=== PATIENT | female | born 1940 | race Caucasian/White ===

== ENCOUNTER 2023-04-04 10:42 | Outpatient (OUT) | payer MEDICARE, SELFPAY ==
--- NOTE | 2023-04-04 | XR_ITS ---
The [address] [address] Patient Name: OMER TATUM MRN: [id number] date: 1940 Sex: F Assigned Patient Location: LAB Current Patient Location: LAB Accession/Order Number: [id number] Exam Date: 04/04/2023 11:15 Report Date: 04/04/2023 11:37 At the request of: ELMO CHOI Procedure: XR chest 2V PROCEDURE: XR chest 2V DATE: 04/04/2023 10:15 AM CDT COMPARISONS: 03/03/2020 CLINICAL INDICATION: 83 years Female R05.3 FINDINGS: The cardiomediastinal silhouette and pulmonary vasculature are within normal limits. There is evidence of moderate chronic lung changes Lateral view suggest that there is the development of pleural effusion. This is difficult to well identified frontal view but it is probably left-sided. There may be minimal right pleural effusion as well. There is no evidence of pneumothorax. XR/XR chest 2V IMPRESSION: Evidence of moderate chronic lung changes, stable. It appears a small left pleural effusion has developed in the interval. Electronically authenticated by: GARY HOBBS Date: 04/04/2023 11:37
[2023-04-04 12:23] LABS: Bilirubin Urine NEGATIVE (NEGATIVE); Blood Urine MODERATE (NEGATIVE); Clarity Urine CLEAR (CLEAR); Color Urine LT. YELLOW (YELLOW); Glucose Urine UA NEGATIVE (NEGATIVE); Ketones Urine NEGATIVE (NEGATIVE); Leukocyte Esterase Urine MODERATE (NEGATIVE); Nitrite Urine POSITIVE (NEGATIVE); Protein Urine 30 mg/dL (NEG/TRACE); Specific Gravity Urine 1.025 (1.005-1.025); Urobilinogen Urine 0.2 EU/dL (0.2-1.0); pH Urine 5.5 (5.0-9.0)
[2023-04-04 12:49] LABS: Basophils Absolute Auto 0.1 10^3/uL (0.0-0.1); Basophils Percent Auto 0.9 % (0.2-2.0); Eosinophils Absolute Auto 0.1 10^3/uL (0.0-0.7); Eosinophils Percent Auto 0.7 % (0.9-7.0); Hemoglobin 12.9 g/dL (12.0-16.0); Immature Granulocytes Abs Auto 0.04 10^3/uL (0.00-0.03); Immature Granulocytes Pct Auto 0.4 % (0.0-0.5); Lymphocytes Absolute Auto 1.9 10^3/uL (1.2-3.8); Lymphocytes Percent Auto 21.5 % (20.5-60.0); Mean Corpuscular HGB Conc 31.5 g/dL (29.9-35.2); Mean Corpuscular Hemoglobin 30.1 pg (26.7-34.0); Mean Corpuscular Volume 95.6 fL (81.0-99.0); Mean Platelet Volume 9.5 fL (9.5-13.5); Monocytes Absolute Auto 0.6 10^3/uL (0.3-0.8); Monocytes Percent Auto 6.2 % (1.7-12.0); Neutrophils Absolute Auto 6.3 10^3/uL (1.4-6.5); Neutrophils Percent Auto 70.3 % (43.0-75.0); Platelet Count 474 10^3/uL (150-450); Red Blood Count 4.29 10^6/uL (4.20-5.40); Red Cell Distribution Width 13.8 % (11.0-15.0)
[2023-04-04 13:15] LABS: Albumin Level 3.3 g/dL (3.4-5.0); Anion Gap 16.6; BUN Creatinine Ratio 22.9; Calcium 9.8 mg/dL (8.5-10.1); Carbon Dioxide 24.3 mmol/L (21.0-32.0); Chloride 102 mmol/L (98-107); Estimated GFR (African America >60 (>=60); Estimated GFR (Non-African Ame 56 (>=60); Glucose 104 mg/dL (74-106); Potassium 3.9 mmol/L (3.5-5.1); Sodium 139 mmol/L (136-145)
[2023-04-04 13:39] LABS: Alanine Aminotransferase 26 U/L (14-59); Albumin Globulin Ratio 0.7; Alkaline Phosphatase 236 U/L (46-116); Aspartate Amino Transferase 27 U/L (15-37); Bilirubin Total 0.2 mg/dL (0.2-1.0); Globulin 4.8 g/dL; Thyroid Stimulating Hormone 0.973 uIU/mL (0.358-3.740); Total Protein 8.1 g/dL (6.4-8.2)
[2023-04-04 15:40] LABS: Free T4 1.09 ng/dL (0.76-1.46)
== END 2023-04-04 10:43 | disposition home or self-care (01) ==
LOC: LAB 10:47
PROVIDERS: PCP Family Medicine; Visit Provider Family Medicine
DX: R05.3 Chronic cough (principal); R63.4 Abnormal weight loss; R53.83 Other fatigue; J90 Pleural effusion, not elsewhere classified
CPT/HCPCS: 36415; 71046; 80053; 81003; 84439; 84443; 85025; 87086; 87150; 87186

== ENCOUNTER 2024-03-06 11:28 | Outpatient (OUT) | payer MEDICARE, SELFPAY ==
--- NOTE | 2024-03-06 | XR_ITS ---
The [address] [address] Patient Name: OMER TATUM MRN: [id number] date: 1940 Sex: F Assigned Patient Location: Current Patient Location: Accession/Order Number: [id number] Exam Date: 03/06/2024 11:30 Report Date: 03/07/2024 06:59 At the request of: GALILEA ADAMS Procedure: XR foot RT min 3V PROCEDURE: XR foot RT min 3V HISTORY: RIGHT FOOT PAIN ; painful lump medial right foot. COMPARISON: None. FINDINGS: BONES:Mild degenerative changes the first metatarsophalangeal joint. Calcaneal plantar spur. No fracture, dislocation, bone lesion. SOFT TISSUES:No visible soft tissue swelling. EFFUSION:None visible. OTHER: Negative. XR/XR foot RT min 3V IMPRESSION: 1. Mild degenerative changes. 2. No acute abnormality or specific findings to account for patient's symptoms. Electronically authenticated by: LI PABON Date: 03/07/2024 06:59
== END 2024-03-06 11:29 | disposition home or self-care (01) ==
LOC: EC 11:28
PROVIDERS: PCP Family Medicine; Visit Provider Podiatrist Foot & Ankle Surgery
DX: M79.671 Pain in right foot (principal); M77.31 Calcaneal spur, right foot
CPT/HCPCS: 73630

== ENCOUNTER 2024-09-12 10:48 | Outpatient (OUT) | payer MEDICARE, SELFPAY ==
--- OUTSIDE RECORDS SUMMARY | 2024-09-12 10:56 | XMS_ITS | CCD ---
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 Name Role Phone René Arias Unavailable Unavailable René Arias Unavailable Unavailable René Arias Unavailable Unavailable Igor SANDERSON Unavailable Unavailable PHYSICIAN, DEFAULT Admitting Unavailable PHYSICIAN, DEFAULT Attending Unavailable JIMBO, DR LEYLA Bustillos Primary Care Unavailable FAWWAChris, EDWARDS H Admitting Unavailable FAWWAD EDWARDS H Consulting Unavailable FANISHANT JULIANIKH H Attending Unavailable JIMBO, DR LEYLA Bustillos Primary Care Unavailable FAWWAChris, EDWARDS H Admitting Unavailable FANISHANT JULIANIKH H Attending Unavailable FROY, DR RIGOBERTO Connolly Consulting Unavailable FAIESHA, EDWARDS H Consulting Unavailable DR LI PABON Consulting Unavailable JIMBO, DR LEYLA Bustillos Attending Unavailable JIMBO, DR LEYLA Bustillos Admitting Unavailable JIMBO, DR LEYLA Bustillos Primary Care Unavailable JIMBO, DR LEYLA Bustillos Consulting Unavailable Shanti Garsia Unavailable Leyla Choi Unavailable Unavailable Unavailable Dr. Carolina Quezada Referring Unavailable Dr. Carolina Quezada Attending Unavailable Dr. Leyla Choi Primary Care Una ailDr. Leyla Barbour Primary Care Una ailDr. Carolina Dumont Referring Unavailable Dr. Carolina Quezada Attending Unavailable Leyla Choi Unavailable Finesse Tomlinson Unavailable Leyla Choi Primary Care Unavailable Harrison Pastor Jr Attending Unavailable Harrison Pastor Jr Admitting Unavailable Allergies Allergy Classification Reported Allergen(s) Allergy Type Date of Onset Reaction(s) Facility (20 sources) codeine; Translations: [codeine] Drug Allergy 0 Rash, Unknown [facility] Repository (7 sources) ibuprofen; Translations: [Advil] Drug Allergy 5 AOF [facility] Repository (2 sources) lisinopril; Translations: [Prinivil] Drug Allergy 4 [facility] Repository (12 sources) Adhesive agent Drug allergy (disorder) 0 Unknown [facility] Repository (1 source) Misc-Other; Translations: [Misc-Other] Propensity to adverse reactions (disorder) 3 [facility] Repository (12 sources) Ibuprofen Drug Allergy 4 Unknown, Swelling of Lip/Tongue/Thr oat [facility] (12 sources) Lisinopril Drug Allergy 4 Unknown, Nausea [facility] (6 sources) Adhesive Tape Drug allergy Unknown [facility] Other (1 source) Allergies Reconciled Propensity to adverse reactions Unknown [facility] Other (1 source) patient allergy list reviewed by nurse or physicia Propensity to adverse reactions 9 Comment:Done [facility] Other (2 sources) Adhesive Tape Drug allergy (disorder) 4 rash [facility] Repository (1 source) Ibuprofen Drug Allergy 4 [facility] Repository (1 source) Lisinopril Drug Allergy 4 [facility] Repository Medications Current Medications Medication Drug Class(es) Dates Sig (Normalized) Sig (Original) aspirin 81 mg chewable tablet (1 source) Platelet Aggregation Inhibitor, Nonsteroidal Anti-inflammatory Drug Start: 12-06-2018 take 81 mg by mouth once daily Aspirin Active 81 MG PO Daily December 06, 2018 12:00am atorvastatin 40 mg oral tablet (18 sources) HMG-CoA Reductase Inhibitor Start: 10-23-2023 take 1 tablet by mouth once daily Atorvastatin Active 0 .ROUTE .COMPLEX 90 October 23, 2023 1:00pm TAKE 1 TABLET BY MOUTH EVERY DAY FOR 30 DAYS Start: 12-06-2018 End: 10-23-2023 take 1 tablet by mouth once daily Atorvastatin Calcium 40 MG Oral Tablet TAKE 1 TABLET BY MOUTH EVERY DAY Quantity: 90 Refills: 0 Ordered: 02-Apr-2021 DO Start : 02-Apr-2021 Active carvedilol 6.25 mg oral tablet (1 source) alpha-Adrenergic Amish, beta-Adrenergic Amish Start: 12-06-2018 take 6.25 mg by mouth twice daily Carvedilol Active 6.25 MG PO Twice daily December 06, 2018 12:00am ciprofloxacin 250 mg oral tablet (3 sources) Quinolone Antimicrobial Start: 04-06-2023 take 1 tablet by mouth every twelve hours Ciprofloxacin HCl 250 MG 1 tablet Orally every 12 hrs for 5 day(s) Apr, Active donepezil hydrochloride 10 mg oral tablet (14 sources) Start: 09-25-2023 End: 12-25-2023 take 1 tablet by mouth once daily at bedtime Donepezil Active 0 .ROUTE .COMPLEX 90 December 25, 2023 12:52pm TAKE 1 TABLET BY MOUTH EVERY DAY AT BEDTIME Start: 09-07-2023 End: 09-25-2023 take 10 mg by mouth once daily Donepezil Discontinued 10 MG PO Daily September 07, 2023 1:00am September 25, 2023 11:33am Start: 10-24-2022 take 1 tablet by amanda th every twenty-four hours Aricept 10 MG 1 tablet at bedtime Orally Once a day for 30 days Oct, Active Donepezil HCl 5 MG TAKE 1 TABLET BY MOUTH EVERY DAY AT BEDTIME FOR 30 DAYS for 30 Active FLUoxetine 20 mg oral capsule (1 source) Serotonin Reuptake Inhibitor Start: 12-06-2018 take 20 mg by mouth once daily Fluoxetine Active 20 MG PO Daily December 06, 2018 12:00am Fluticasone Propion-Salmeterol (1 source) Corticosteroid, beta2-Adrenergic Agonist Start: 12-06-2018 take 1 puff(s) by inhalation every twelve hours Fluticasone Propion-Salmetero l (Advair Hfa) 230-21 mcg/actuation Hfa Aerosol Inhaler Active 2 PUFF INHALATION Q12H December 06, 2018 12:00am Handicap placards as directed (11 sources) Handicap placard s as directed as directed as directed as directed Active losartan potassium 25 mg oral tablet (1 source) Angiotensin 2 Receptor Amish Start: 12-06-2018 take 25 mg by mouth once daily Losartan Active 25 MG PO Daily December 06, 2018 12:00am mirtazapine 15 mg oral tablet (11 sources) Start: 08-28-2023 End: 11-28-2023 take 1 tablet by mouth once daily at bedtime Mirtazapine Active 0 .ROUTE .COMPLEX 90 November 28, 2023 2:06pm TAKE 1 TABLET BY MOUTH EVERYDAY AT BEDTIME Start: 08-28-2023 End: 08-28-2023 take 1 tablet by mouth once daily at bedtime Mirtazapine Discontinued 15 MG PO Daily at bedtime August 28, 2023 1:00am August 28, 2023 3:24pm FreeTextSig: TAKE 1 TABLET BY MOUTH EVERYDAY AT BEDTIME; Note: Source Status: Start; Refills: 0; Qty: 90 Tablet; Provider: Jimbo Mayer ( ) Start: 10-24-2022 take 1 tablet by amanda th every twenty-four hours Remeron 15 MG 1 tablet at bedtime Orally Once a day for 30 days Oct, Active mupirocin 0.02 mg/mg topical ointment (3 sources) RNA Synthetase Inhibitor Antibacterial Start: 10-24-2022 Mupirocin 2 % 1 application Externally Twice a day for 5 days Oct, Active 24 hr nitroglycerin 0.2 mg/hr transdermal system (7 sources) Nitrate Vasodilator Start: 12-06-2018 Nitroglyce rin Active 0.4 MG SUBLINGUAL every 5 to 15 minutes December 06, 2018 12:00am Start: 12-06-2018 apply 1 dose transde rmal route once daily Nitroglycerin Active 1 PATCH TRANSDERML Daily December 06, 2018 12:00am sacubitril 24 mg / valsartan 26 mg oral tablet (18 sources) Angiotensin 2 Receptor Amish Start: 02-07-2024 take 1 tablet by mouth twice daily Sacubitril-Valsartan (Entresto) 24-26 mg tablet Active 0 .ROUTE .COMPLEX 180 February 07, 2024 9:56pm TAKE 1 TABLET BY MOUTH TWICE A DAY FOR 30 DAYS Start: 02-07-2024 End: 02-07-2024 take 1 tablet by mouth twice daily Sacubitril-Valsartan (Entresto) 24-26 mg tablet Discontinued 1 TAB PO Twice daily February 07, 2024 12:00am February 07, 2024 9:56pm Start: 04-21-2021 take 1 tablet by amanda th twice daily Entresto 24-26 MG Oral Tablet TAKE 1 TABLET TWICE A DAY BY ORAL ROUTE FOR 90 DAYS. Quantity: 180 Refills: 0 Ordered: 22-Oct-2021 DO Start : 21-Apr-2021 Active ENTRESTO 24 mg/2 6 mg 1 orally twice a day for 30 days Active ENTRESTO 24 mg/2 6 mg 1 orally twice a day Active ENTRESTO 24 mg/2 6 mg 1 orally twice a day Not-Taking Spiriva HandiHaler (5 sources) Spiriva HandiHal er Active Suprep Bowel Prep . (1 source) Start: 2 Tiotropium [place] (Spiriva With Handihaler) 18 mcg Capsule, W/Inhalation Device (1 source) Start: 7 take 1 capsule by inhalation once daily Tiotropium [place] (Spiriva With Handihaler) 18 mcg Capsule, W/Inhalation Device Active 1 CAP INHALATION Daily June 12, 2017 1:00am traMADol hydrochloride 50 mg oral tablet (20 sources) Opioid Agonist Start: take 50 mg by mouth every eight hours Tramadol Active 50 MG PO Every 8 hours 90 December 06, 2023 8:25am Start: 08-25-2023 End: 12-06-2023 take 50 mg by mouth every six hours Tramadol Discontinued 50 MG PO Every 6 hours 120 August 28, 2023 10:22am December 06, 2023 8:26am Start: 05-02-2023 take 1 tablet by amanda th every six hours as needed traMADol HCl 50 MG TAKE 1 TABLET BY MOUTH EVERY 6 HOURS NEEDED for 30 days Apr, Active Start: 02-14-2023 take 1 tablet by amanda th every six hours as needed traMADol HCl 50 MG TAKE 1 TABLET BY MOUTH EVERY 6 HOURS NEEDED for 30 days Jan, Active Start: 11-03-2022 take 1 tablet by amanda th every six hours as needed traMADol HCl 50 MG TAKE 1 TABLET BY MOUTH EVERY 6 HOURS NEEDED for 30 October, Active Start: 09-23-2022 take 1 tablet by amanda th every six hours as needed traMADol HCl 50 MG TAKE 1 TABLET BY MOUTH EVERY 6 HOURS NEEDED for 30 Aug, Active Start: 07-25-2022 take 1 tablet by amanda th every six hours as needed traMADol HCl 50 MG 1 tablet as needed Orally q6h prn for 30 days 1st rx had wrong amount. Jul, Active Start: 02-23-2022 take 1 tablet by amanda th every six hours as needed for pain traMADol HCl - 50 MG Oral Tablet TAKE 1 TABLET BY MOUTH EVERY 6 HOURS NEEDED FOR PAIN Quantity: 120 Refills: 0 Ordered: 23-Feb-2022 DO Start : 23-Feb-2022 Active Start: 06-12-2017 End: 12-06-2018 take 1 tablet by mouth four times daily Tramadol (Ultram) 50 mg Tablet Discontinued 50 MG PO Four times daily June 12, 2017 1:00am December 06, 2018 3:51pm Completed/Discontinued Medications Medication Drug Class(es) Dates Sig (Normalized) Sig (Original) Acetaminophen / Aspirin / Caffeine (6 sources) Platelet Aggregation Inhibitor, Nonsteroidal Anti-inflammatory Drug, Central Nervous System Stimulant, Methylxanthine Excedrin TABS TAKE 1 TABLET 3 TIMES DAILY NEEDED. Quantity: 0 Refills: 0 Ordered: 10-Mar-2022 DO Active take 2 tablets by mouth every si x hours Excedrin Extra Strength 250-250-65 MG 2 tablets as needed Orally every 6 hrs Active [id number] 200 actuat albuterol 0.09 mg/actuat metered dose inhaler (12 sources) beta2-Adrenergic Agonist Start: 10-22-2021 take 2 puff(s) by mouth every four hours as needed Albuterol Sulfate HFA 108 (90 Base) MCG/ACT Inhalation Aerosol Solution INHALE 2 PUFFS BY MOUTH EVERY 4 HOURS NEEDED Quantity: 8 Refills: 0 Ordered: 22-Oct-2021 DO Start : 22-Oct-2021 Active Start: 12-06-2018 take 1 puff(s) by in halation every four to six hours Albuterol Sulfate Active 2 PUFF INHALATION EVERY 4-6 HOURS December 06, 2018 12:00am take 1 puff(s) by in halation every four hours as needed Ventolin HFA 108 (90 Base) MCG/ACT 1 puff as needed Inhalation every 4 hrs Active ezetimibe 10 mg oral tablet (2 sources) Dietary Cholesterol Absorption Inhibitor Start: 06-12-2017 End: 12-06-2018 take 1 tablet by mouth once daily Ezetimibe (Zetia) 10 mg Tablet Discontinued 10 MG PO Daily June 12, 2017 1:00am December 06, 2018 1:51pm hydroCHLOROthiazide 25 mg oral tablet (5 sources) Thiazide Diuretic Start: 04-21-2021 take 1 tablet by mouth once daily hydroCHLOROthiazide 25 MG Oral Tablet TAKE 1 TABLET BY MOUTH EVERY DAY Quantity: 90 Refills: 0 Ordered: 02-Jul-2021 DO Start : 21-Apr-2021 Active hyoscyamine sulfate 0.125 mg oral tablet (5 sources) take 1 tablet by mouth once daily Hyoscyamine Sulfate 0.125 MG Oral Tablet Take 1 tablet daily Quantity: 0 Refills: 0 Ordered: 10-Mar-2022 DO Active 24 hr metoprolol succinate 100 mg extended release oral tablet (7 sources) beta-Adrenergic Amish Start: 04-21-2021 take 0.5 tablet by mouth once daily Metoprolol Succinate ER 100 MG Oral Tablet Extended Release 24 Hour TAKE 0.5 TABLETS BY MOUTH EVERY DAY FOR 90 DAYS. Quantity: 45 Refills: 0 Ordered: 03-Jan-2022 DO Start : 21-Apr-2021 Active Start: 06-12-2017 End: 12-06-2018 take 100 mg by mouth once daily Metoprolol Succinate Discontinued 100 MG PO Daily June 12, 2017 1:00am December 06, 2018 1:52pm omeprazole 20 mg delayed release oral capsule (6 sources) Proton Pump Inhibitor Start: 01-17-2022 Omeprazo le 20 MG Oral Capsule Delayed Release Quantity: 90 Refills: 0 Ordered: 17-Jan-2022 DO Start : 17-Jan-2022 Active Start: 12-06-2018 take 20 mg by mouth once daily Omeprazole Active 20 MG PO Daily December 06, 2018 12:00am tiotropium 0.018 mg inhalati on powder (6 sources) Anticholinergic Spiriva HandiHal er 18 MCG Inhalation Capsule USE DIRECTED. Quantity: 0 Refills: 0 Ordered: 10-Mar-2022 DO Active Spiriva HandiHal er 18 MCG Inhalation Active Problems Active Problems Problem Classification Problem Date Documented Da te Episodic/Chronic Abdominal pain (12 sources) Abdominal colic; Translations: [Generalized abdominal pain] Episodic Adjustment disorders (12 sources) Reactive depression (situational); Translations: [Adjustment disorder with depressed mood] Onset: 9 Chronic Anxiety disorders (12 sources) Anxiety; Translations: [Other specified anxiety disorders] Onset: 9 Chronic Aortic; peripheral; and visceral artery aneurysms (20 sources) Abdominal aortic aneurysm, without rupture; Translations: [Abdominal aortic aneurysm without rupture] Onset: 8 Resolved: 2 Chronic Chronic obstructive pulmonary disease and bronchiectasis (20 sources) Chronic obstructive lung disease; Translations: [Chronic airway obstruction, not elsewhere classified] Onset: 9 Chronic Conduction disorders (5 sources) Left bundle branch block; Translations: [Other left bundle branch block] Chronic Congestive heart failure; nonhypertensive (17 sources) Unspecified systolic (congestive) heart failure; Translations: [Systolic heart failure] Onset: 1 Chronic Coronary atherosclerosis and other heart disease (16 sources) Coronary atherosclerosis; Translations: [Coronary atherosclerosis of apache coronary artery] Onset: 9 Chronic Delirium, dementia, and amnestic and other cognitive disorders (14 sources) Alzheimer's disease; Translations: [Alzheimer's disease, unspecified] Chronic Disorders of lipid metabolism (20 sources) Hyperlipidemia, unspecified; Translations: [Mixed hyperlipidemia] Onset: 1 Chronic E Codes: Fall (1 source) Fall in home; Translations: [Unspecified fall, initial encounter] 09-15-2023 Episodic Esophageal disorders (17 sources) Gastroesophageal reflux disease; Translations: [Esophageal reflux] Chronic Essential hypertension (18 sources) Essential (primary) hypertension; Translations: [Benign essential hypertension] Onset: 2 Chronic Gastrointestinal hemorrhage (12 sources) Hemorrhage of rectum and anus; Translations: [Rectal bleed] Episodic Genitourinary symptoms and ill-defined conditions (11 sources) Dysuria; Translations: [Dysuria] Episodic Malaise and fatigue (12 sources) Asthenia; Translations: [Weakness] Episodic Nonspecific chest pain (2 sources) Chest pain; Translations: [Chest pain, unspecified] Onset: 9 Episodic Occlusion or stenosis of precerebral arteries (2 sources) Left carotid artery stenosis; Translations: [Occlusion and stenosis of carotid artery without mention of cerebral infarction] Chronic Open wounds of head; neck; and trunk (1 source) Laceration of forehead; Translations: [Laceration without foreign body of other part of head, initial encounter] 09-15-2023 Episodic Other aftercare (11 sources) Long-term current use of inhaled steroid; 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] Episodic Other circulatory disease (5 sources) Carotid bruit; Translations: [Other symptoms involving cardiovascular system] Episodic Other circulatory disease (12 sources) Low blood pressure; Translations: [Hypotension, unspecified] Episodic Other connective tissue disease (11 sources) Pain of right calf; Translations: [Pain in right lower leg] Episodic Other connective tissue disease (1 source) Pain in limb; Translations: [Pain in right lower leg] Episodic Other connective tissue disease (1 source) Foot pain; Translations: [Pain in right foot] 02-27-2024 Episodic Other connective tissue disease (1 source) Pain in right foot; Translations: [Pain in limb] 02-27-2024 Episodic Other gastrointestinal disorders (11 sources) Functional diarrhea; Translations: [Functional diarrhea] Episodic Other injuries and conditions due to external causes (1 source) History of fall; Translations: [History of falling] Episodic Other injuries and conditions due to external causes (1 source) Minor head injury; Translations: [Unspecified injury of head, initial encounter] 09-15-2023 Episodic Other lower respiratory disease (11 sources) Dyspnea on exertion; Translations: [Other forms of dyspnea] Episodic Other lower respiratory disease (11 sources) Multiple nodules of lung; Translations: [Other nonspecific abnormal finding of lung field] Episodic Other lower respiratory disease (1 source) Lung field abnormal; Translations: [Other nonspecific abnormal finding of lung field] Episodic Other nutritional; endocrine; and metabolic disorders (5 sources) Body mass index less than 20; Translations: [Body Mass Index less than 19, adult] Episodic Other nutritional; endocrine; and metabolic disorders (12 sources) Underweight; Translations: [Underweight] Episodic Other nutritional; endocrine; and metabolic disorders (2 sources) Abnormal weight loss Episodic Other screening for suspected conditions (not mental disorders or infectious disease) (2 sources) Encounter for screening for malignant neoplasm of respiratory organs; Translations: [Screening for malignant neoplasm of respiratory tract] Onset: 1 Episodic Other skin disorders (12 sources) Inflamed seborrheic keratosis; Translations: [Inflamed seborrheic keratosis] Onset: 8 Episodic Peripheral and visceral atherosclerosis (20 sources) Peripheral vascular disease, unspecified; Translations: [Atherosclerosis of artery of lower limb] Onset: 2 Resolved: 2 Chronic Pneumonia (except that caused by tuberculosis or sexually transmitted disease) (12 sources) Right lower zone pneumonia; Translations: [Pneumonia, unspecified organism] Onset: 9 Episodic Residual codes; unclassified (5 sources) Localized edema; Translations: [Localized edema] Onset: 2 Episodic Residual codes; unclassified (5 sources) Poor short-term memory ; Translations: [Memory loss] Episodic Residual codes; unclassified (12 sources) Insomnia; Translations: [Insomnia, unspecified] Onset: 9 Episodic Residual codes; unclassified (11 sources) Edema; Translations: [Localized edema] Episodic Residual codes; unclassified (11 sources) Memory impairment; Translations: [Other amnesia] Episodic Residual codes; unclassified (13 sources) Tobacco user; Translations: [Tobacco use] Onset: 8 Episodic Residual codes; unclassified (1 source) Amnesia; Translations: [Other amnesia] Episodic Spondylosis; intervertebral disc disorders; other back problems (16 sources) Chronic back pain ; Translations: [Dorsalgia, unspecified] Onset: 8 Episodic Substance-related disorders (6 sources) Smoker; Translations: [Tobacco use disorder] Chronic Comment on above: 1 pack daily; Superficial injury; contusion (1 source) Abrasion of other part of head, initial encounter Episodic Unclassified (1 source) Unspecified injury of head, initial encounter; Translations: [Unspecified injury of head, initial encounter] Onset: 4 Urinary tract infections (12 sources) Acute urinary tract infection; Translations: [Urinary tract infection, site not specified] Onset: 9 Episodic Past or Other Problems Problem Classification Problem Date Documented Da te Episodic/Chronic Immunizations and screening for infectious disease (1 source) Vaccination given; Translations: [Encounter for immunization] Onset: 05-02-2018 Episodic Other lower respiratory disease (6 sources) Dyspnea; Translations: [Shortness of breath] Onset: 10-22-2018 Episodic Unclassified (11 sources) Abdominal aortic aneurysm (AAA) 3.0 cm to 5.0 cm in diameter in female; Translations: [Abdominal aortic aneurysm (AAA) 3.0 cm to 5.0 cm in diameter in female] Unclassified (1 source) 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 classified elsewhere, moderate, without behavioral disturbance, psychotic disturbance, mood disturbance, and anxiety F02.B0 Unclassified (1 source) Chronic cough R05.3 Results Test Name Value Interpretation Reference Range Facility CT head/brain wo conon 09-07 CT head/brain wo con [facility] Main [place] [address] [place] [address] CT Scan Report Signed Patient: Jody Tatum MR#: [id number] : 1940 Acct:[id number] Age/Sex: 83 / F ADM Date: 09/07/23 Loc: ER Room: Type: [facility] ER Attending Dr: Copies to: Harrison Pastor Jr, MD Ordering Provider: Harrison Pastor Jr, MD Date of Service: 09/07/23 CT/CT cervical spine wo con: fall, head inj ([id number]) CT/CT head/brain wo con: fall, head inj CLINICAL DATA: Patient fell off the toilet and hit head. Laceration on the left. CT BRAIN WITHOUT CONTRAST: COMPARISON: None TECHNIQUE: Contiguous axial unenhanced images were obtained through the brain. This CT exam was performed using one or more following dose reduction techniques: Automated exposure control, adjustment of the mA and/or kV according to patient size, or use of iterative reconstruction technique. FINDINGS: There is generalized atrophy. The ventricles are within normal limits for size and position. Microvascular changes are noted including old basal ganglia lacunar infarcts.. There are no additional areas of abnormal attenuation. There is no hemorrhage, mass effect or extra-axial collections. The calvarium is intact. The imaged paranasal sinuses and mastoid air cells are clear. There is carotid siphon plaque. CT/CT cervical spine wo con IMPRESSION: ATROPHY AND SMALL VESSEL ISCHEMIC CHANGES. NO ACUTE INTRACRANIAL TRAUMA. CT CERVICAL SPINE WITHOUT CONTRAST WITH 3D RECONSTRUCTIONS: COMPARISON: None TECHNIQUE: Spiral axial unenhanced images were obtained through the cervical spine. Sagittal, coronal and 3D volume-rendered reconstructions were also reviewed. This CT exam was performed using one or more following dose reduction techniques: Automated exposure control, adjustment of the mA and/or kV according to patient size, or use of iterative reconstruction technique. FINDINGS: There is slight retrolisthesis of C4 on C5 and anterolisthesis of C7 on T1. No acute fractures are identified. There is space narrowing at C4-5. . Endplate spurring is present, greatest at that level. There is bilateral facet disease. The atlantoaxial relationship is maintained. No prevertebral soft tissue swelling is seen. There is vertebral artery and carotid siphon plaque. The upper imaged lungs show obstructive disease and scarring. There is a left upper lobe calcified granuloma. IMPRESSION: DEGENERATIVE CHANGES. NO ACUTE BONY INJURY. Impression dictated by: Raven Trevino M.D.09/08/2023 7:11 AM Dictation Location: [place] [address] Transcribed By: GUERITA 09/08/23710 Dictated By: Raven Trevino MD 09/08/23703 Signed By: 09/08/[address] [facility] Office Visit (Cardiology)on 05-02-2022 Follow-up visit Patient Instructions Please bring all medicines, vitamins, and herbal supplements with you when you come to the office. Prescriptions will not be filled unless you are compliant with your follow up appointments or have a follow up appointment scheduled as per instruction of your physician. Refills should be requested at the time of your visit Chief Complaint TESTING RESULTS. History of Present Illness Patient did not show up for today's appointment. Current Meds Medication NameInstruction Albuterol Sulfate HFA 108 (90 Base) MCG/ACT Inhalation Aerosol SolutionINHALE 2 PUFFS BY MOUTH EVERY 4 HOURS NEEDED Atorvastatin Calcium 40 MG Oral TabletTAKE 1 TABLET BY MOUTH EVERY DAY Entresto 24-26 MG Oral TabletTAKE 1 TABLET TWICE A DAY BY ORAL ROUTE FOR 90 DAYS. Excedrin TABSTAKE 1 TABLET 3 TIMES DAILY NEEDED. hydroCHLOROthiazide 25 MG Oral TabletTAKE 1 TABLET BY MOUTH EVERY DAY Hyoscyamine Sulfate 0.125 MG Oral TabletTake 1 tablet daily Metoprolol Succinate ER 100 MG Oral Tablet Extended Release 24 HourTAKE 0.5 TABLETS BY MOUTH EVERY DAY FOR 90 DAYS. Nitroglycerin 0.4 MG Sublingual Tablet SublingualPLACE 1 TABLET UNDER THE TONGUE EVERY 5 MINUTES FOR UP TO 3 DOSES NEEDED FOR CHEST PAIN.CALL 911 IF PAIN PERSISTS. Omeprazole 20 MG Oral Capsule Delayed ReleaseTAKE 1 CAPSULE Daily Spiriva HandiHaler 18 MCG Inhalation CapsuleUSE DIRECTED. traMADol HCl - 50 MG Oral TabletTAKE 1 TABLET BY MOUTH EVERY 6 HOURS NEEDED FOR PAIN Allergies Medication codeine Allergy; Rash; Recorded By: Luann Barbosa; 03/10/2022 3:09:50 PM Advil Adverse Reaction; Recorded By: Luann Barbosa; 03/10/2022 3:09:50 PM Facial Numbness Social History Problems Current smoker (305.1) (F17.200) 1 pack daily Daily caffeine consumption 5-6 cups of caffeine daily. Pop in afternoon No alcohol use No illicit drug use Review of Systems Constitutional: not feeling tired. Cardiovascular: no intermittent leg claudication and as noted in HPI. Respiratory: no cough and no shortness of breath. Gastrointestinal: no change in bowel habits and no blood in stools. Integumentary: no skin rashes. Neurological: no seizures and no frequent falls. All other systems have been reviewed and are negative for complaint. 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) (I70.209) AAA (abdominal aortic aneurysm) (441.4) (I71.4) Preoperative cardiovascular examination (V72.81) (Z01.810) Atherosclerosis of apache coronary artery of apache heart without angina pectoris (414.01) (I25.10) Ischemic cardiomyopathy (414.8) (I25.5) Past myocardial infarction (412) (I25.2) Hypertension, essential, benign (401.1) (I10) Chronic obstructive pulmonary disease, unspecified COPD type (496) (J44.9) Mixed hyperlipidemia (272.2) (E78.2) LBBB (left bundle branch block) (426.3) (I44.7) GERD (gastroesophageal reflux disease) (530.81) (K21.9) Current smoker (305.1) (F17.200) 1 pack daily BMI less than 19,adult (V85.0) (Z68.1) Memory loss, short term (780.93) (R41.3) Bruit of right carotid artery (785.9) (R09.89) Shortness of breath (786.05) (R06.02) PVD (peripheral vascular disease) (443.9) (I73.9) Orders Bruit of right carotid artery, Preoperative cardiovascular examination [facility] Carotid Artery Duplex Ultrasound; Status:Hold For - Scheduling,Retrospectiv e By Protocol Authorization; Requested for:[id number]; Laterality : Bilateral Chronic obstructive pulmonary disease, unspecified COPD type, Hypertension, essential, benign, Ischemic cardiomyopathy, Mixed hyperlipidemia, Preoperative cardiovascular examination Basic Metabolic Panel; Status:Active - Retrospective Authorization; Requested for:[id number]; Complete Blood Count; Status:Active - Retrospective Authorization; Requested for:10Mar2022; Lipid Panel; Status:Active - Retrospective Authorization; Requested for:[id number]; Ischemic cardiomyopathy, Preoperative cardiovascular examination Echocardiogram; Status:Hold For - Scheduling,Retrospectiv e By Protocol Authorization; Requested for:[id number]; Preoperative cardiovascular examination IO EKG Electrocardiogram- 12 Lead; Status:Complete; Done: 10Mar2022 PVD (peripheral vascular disease), Shortness of breath Brain Natriuretic Peptide BNP; Status:Active - Retrospective By Protocol Authorization; Requested for:[id number]; SocHx: Current smoker You need to quit smoking.; Status:Complete - Retrospective Authorization; Done: [id number] You need to stop smoking. Though it is not easy, more than half of all adult smokers have quit. We encourage you to write down all the reasons you should quit smoking and set a quit date for yourself. Ask us how we can help. You may also call 5-129-TXYFNOW for free resources and assistance.; Status:Complete - Retrospective Authorization; Done: 10Mar2022 Tobacco Use Screening; Status:Complete; Done: [id number] Patient Instructions Please bring all medicines, vitamins, and herbal supplements with you when you come to the office. Prescriptions will not be filled unless you are compliant with your follow up appointments or have a follow up appointment scheduled as per instruction of your physician. Refills should be requested at the time of your visit. Follow up after testing based on today discussion we will hold off on scheduling lexiscan stress test. Patient has yet to definitely decide she is having surgery on the AAA. If echo and carotid are complete and can't provide clearance from those Dr. Quezada states perform lexiscan stress for -poc,sob,aaa Chief Complaint JODY TATUM is being seen for pre-operative clearance and Dr. Floyd- AAA repair. History of Present Illness Patient is new to this provider. Subsequent chart review showed that she had seen Dr. Arndt within the last 3 years. She is accompanied by her son Edward Isaac who is also her medical power of attorney lawyer. Patient is a frail appearing 84-year-old female, with COPD, ongoing nicotine abuse, atherosclerotic apache vessel coronary artery disease, peripheral vascular disease, who was seen initially for lower extremity edema, was placed on hydrochlorothiazide with improvement, then there was concern about acute ischemia to the lower extremities, underwent arterial duplex, then saw vascular surgery, and now the concern is for a large abdominal aortic aneurysm. This aneurysm was about 5 cm about 2 years ago, and there have been discussions in the past about stenting and or surgery, the plan was to continue to observe. Now there is concerned that there is further increase in size. Patient has hypertension, ischemic cardiomyopathy with left ventricular ejection fraction as low as 20%, history of inferior lateral myocardial infarction. She does not report any chest discomfort pressure tightness heaviness, but her activity level is very limited due to various reasons. Her son reports that she gets short of breath with activity such as walking a few steps. She sometimes gets short of breath laying flat. As noted before she continues to smoke. Her appetite is poor. She has lost about 15 pounds in the last 2 to 3 years. 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 [facility] Tobacco Screening.on 022 Adult depression screening assessment No -[facility] [address] DO Work Phone: Fall risk assessment a) No falls within the last year [facility] [address] DO Work Phone: Tobacco use status CP a) Yes [facility] [address] DO Work Phone: Tobacco Screening. Yes [facility] [facility] DO Work Phone: US MARLEN DOP LEG RTon 03-03-20 US MARLEN DOP LEG RT EXAMINATION: US MARLEN DOP LEG RT HISTORY: Localized edema COMPARISON: Ultrasound venous Doppler leg right 05/12/2020 FINDINGS: REGION: Right lower extremity THROMBI: None. COMPRESSIBILITY: Normal compressibility. FLOW: Normal waveform and antegrade flow between 5 and 20 cm/s. OTHER: Complete occlusion of right femoral, popliteal, and posterior tibial arteries. IMPRESSION: 1. No deep VEIN thrombus within the right lower extremity. 2. Complete ARTERIAL occlusion/thrombosis of the right femoral artery, popliteal artery, and posterior tibial artery likely secondary to advanced atherosclerotic disease. Electronically authenticated by: LI PABON Date: 2022-03-03 11:11 Normal [facility] CBC AUTO DIFFon 04-12-2021 BASO # 0.1 103/ul Normal 0.0-0.1 [facility] Comment on above: Performed By: #### C BC #### [facility] [address] [place] [address] Dr. Nikolay Boudreaux Basophils/100 WBC (Bld) 1.3 % Normal 0.2-2.0 [facility] Comment on above: Performed By: #### C BC #### [facility] [address] [place] [address] Dr. Nikolay Boudreaux EO # 0.2 103/ul Normal 0.0-0.7 [facility] Comment on above: Performed By: #### C BC #### [facility] [address] [place] [address] Dr. Nikolay Boudreaux Eosinophils/100 WBC (Bld) 1.9 % Normal 0.9-7.0 [facility] Comment on above: Performed By: #### C BC #### [facility] [address] [place] [address] Dr. Nikolay Boudreaux Erythrocyte distribution width (RBC) [Ratio] 13.7 % Normal 11.0-15.0 [facility] Comment on above: Performed By: #### C BC #### [facility] [address] [place] [address] Dr. Nikolay Boudreaux Hematocrit (Bld) [Volume fraction] 41.0 % Normal 36.0-48.0 [facility] Comment on above: Performed By: #### C BC #### [facility] [address] [place] [address] Dr. Nikolay Boudreaux Hemoglobin (Bld) [Mass/Vol] 13.5 g/dL Normal 12.0-16.0 [facility] Comment on above: Performed By: #### C BC #### [facility] [address] [place] [address] Dr. Nikolay Boudreaux IG # 0.03 10e3/ul Normal 0.00-0.03 [facility] Comment on above: Performed By: #### C BC #### [facility] [address] [place] [address] Dr. Nikolay Boudreaux IG % 0.4 % Normal 0.0-0.5 [facility] Comment on above: Performed By: #### C BC #### [facility] [address] [place] [address] Dr. Nikolay Boudreaux LYMPH # 2.5 103/ul Normal 1.2-3.8 [facility] Comment on above: Performed By: #### C BC #### [facility] [address] [place] [address] Dr. Nikolay Boudreaux Lymphocytes/100 WBC (Bld) 30.5 % Normal 20.5-60.0 [facility] Comment on above: Performed By: #### C BC #### [facility] [address] [place] [address] Dr. Nikolay Boudreaux MANUAL DIFF REQ NO [facility] Comment on above: Performed By: #### C BC #### [facility] [address] [place] [address] Dr. Nikolay Boudreaux MCH (RBC) [Entitic mass] 31.8 pg Normal 26.7-34.0 [facility] Comment on above: Performed By: #### C BC #### [facility] [address] [place] [address] Dr. Nikolay Boudreaux MCHC (RBC) [Mass/Vol] 32.9 g/dL Normal 29.9-35.2 [facility] Comment on above: Performed By: #### C BC #### [facility] [address] [place] [address] Dr. Nikolay Boudreaux MCV (RBC) [Entitic vol] 96.5 fL Normal 81.0-99.0 [facility] Comment on above: Performed By: #### C BC #### [facility] [address] [place] [address] Dr. Nikolay Boudraeux MONO # 0.7 103/ul Normal 0.3-0.8 [facility] Comment on above: Performed By: #### C BC #### [facility] [address] [place] [address] Dr. Nikolay Boudreaux Monocytes/100 WBC (Bld) 8.4 % Normal 1.7-12.0 [facility] Comment on above: Performed By: #### C BC #### [facility] [address] [place] [address] Dr. Nikolay Boudreaux NEUT # 4.7 103/ul Normal 1.4-6.5 [facility] Comment on above: Performed By: #### C BC #### [facility] [address] [place] [address] Dr. Nikolay Boudreaux Neutrophils/100 WBC (Bld) 57.5 % Normal 43.0-75.0 [facility] Comment on above: Performed By: #### C BC #### [facility] [address] [place] [address] Dr. Nikolay Boudreaux Platelet mean volume (Bld) [Entitic vol] 9.4 fL Critically low 9.5-13.5 [facility] Comment on above: Performed By: #### C BC #### [facility] [address] [place] [address] Dr. Nikolay Boudreaux PLT 270 103/ul Normal 150-450 [facility] Comment on above: Performed By: #### C BC #### [facility] [address] [place], [place] [address] Dr. Nikolay Boudreaux RBC 4.25 106/ul Normal 4.20-5.40 [facility] Comment on above: Performed By: #### C BC #### [facility] [address] [place], [place] [address] Dr. Nikolay Boudreaux WBC 8.2 103/ul Normal 4.0-11.0 [facility] Comment on above: Performed By: #### C BC #### [facility] [address] [place], [place] [address] Dr. Nikolay Boudreaux CTA ABDOMEN WO W CONon 04-12 CTA ABDOMEN WO W CON EXAMINATION: CTA ABDOMEN WO W CON HISTORY: Abdominal aortic aneurysm without rupture COMPARISON: 03/15/2019 TECHNIQUE: Axial, Coronal, and Sagittal CT images without and with IV contrast. Multi-planar/3-D imaging to optimize visualization of vascular anatomy. Dose reduction techniques were achieved by using automated exposure control and/or adjustment of mA and/or kV according to patient size and/or use of iterative reconstruction technique. FINDINGS: AORTA/VASCULAR: Fusiform abdominal aortic aneurysm measuring 11.2 cm in craniocaudal extent starting just below the level of the renal arteries extending into the right common iliac artery. The apache sac measures a maximum of 5.2 x 5.0 cm with the patent lumen at the same location measuring 2.3 x 1.9 cm. Dilation of the right common iliac artery measuring up to 2.2 cm with patent lumen measuring 1.1 cm. Extensive atherosclerotic plaque. No flow significant stenosis proximal celiac artery or SMA. Ostial atherosclerosis both renal arteries. LUNG BASES: Moderate diffuse centrilobular emphysema. Peripheral intralobular septal thickening. LIVER: No enlargement, atrophy, abnormal density, or significant focal lesion. BILIARY: Surgical clips from cholecystectomy PANCREAS: No lesion, fluid collection, ductal dilatation, or atrophy. SPLEEN: No enlargement or focal lesion. ADRENALS: No mass or enlargement. KIDNEYS: Severe atrophy of the lower pole. Hypodensity left cortex, a cyst is favored. No hydronephrosis BOWEL/MESENTERY: Nonobstructive bowel gas pattern RETROPERITONEUM: No mass or adenopathy. ABDOMINAL WALL: No mass or hernia. BONES: Moderate to severe diffuse degenerative changes. Lumbosacral fusion. Fracture of the most inferior left screw crossing the left sacroiliac joint OTHER: Negative. IMPRESSION: Interval increase in size of fusiform abdominal aortic aneurysm measuring a maximum of 5.2 x 5.0 cm in axial dimensions with extensive soft and calcific atherosclerotic plaque, aneurysm extending into the right common iliac artery. Electronically authenticated by: RIGOBERTO MCDUFFIE Date: 2021-04-12 14:29 Normal [facility] LIPID PROFILEon 04-12-2021 CHOL-HDL RATIO NORM SEE BELOW Normal [facility] Comment on above: Result Comment: 3.3 - 4.4 LOW RISK 4.4 - 7.1 AVERAGE RISK 7.1 - 11.0 MODERATE RISK >11.0 HIGH RISK Performed By: #### L IPID #### [facility] [address] [place] [address] Dr. Nikolay Boudreaux Cholesterol [Mass/Vol] 156 mg/dL Normal <=200 [facility] Comment on above: Performed By: #### L IPID #### [facility] [address] [place] [address] Dr. Nikolay Boudreaux Cholesterol in HDL [Mass/Vol] 44 mg/dL Normal [facility] Comment on above: Performed By: #### L IPID #### [facility] [address] [place] [address] Dr. Nikolay Boudreaux Cholesterol in LDL [Mass/Vol] 91.4 mg/dL Normal [facility] Comment on above: Performed By: #### L IPID #### [facility] [address] [place] [address] [address] Nikolay Boudreaux Cholesterol.total/C holesterol in HDL [Mass ratio] 3.5 {ratio} Normal [facility] Comment on above: Performed By: #### L IPID #### [facility] [address] [place] [address] [address] Nikolay Boudreaux HDL NORMAL > or = 60 mg/dl - LO W CARDIOVASCULAR RISK <40 mg/dl - HIGH CARDIOVASCULAR RISK Normal [facility] Comment on above: Performed By: #### L IPID #### [facility] [address] [place] [address] [address] Nikolay Boudreaux LDL CALC NORMAL SEE BELOW Normal [facility] Comment on above: Result Comment: <100 mg/dl OPTIMAL 100 - 129 mg/dl NEAR OR ABOVE OPTIMAL 130 - 159 mg/dl BORDERLINE HIGH 160 - 189 mg/dl HIGH >190 mg/dl VERY HIGH Performed By: #### L IPID #### [facility] [address] [place] [address] [address] Nikolay Boudreaux Triglyceride [Mass/Vol] 103 mg/dL Normal <=150 [facility] Comment on above: Performed By: #### L IPID #### [facility] [address] [place] [address] [address] Nikolay Boudreaux VLDL CALC 20.6 mg/dL Normal [facility] Comment on above: Performed By: #### L IPID #### [facility] [address] [place] [address] Dr. Nikolay Boudreaux PROF 14(COMP METB)on 021 Albumin [Mass/Vol] 3.6 g/dL Normal 3.5-5.0 [facility] Comment on above: Performed By: #### C MP #### [facility] [address] [place] [address] Dr. Nikolay Boudreaux Albumin/Globulin [Mass ratio] 1.0 {ratio} Normal [facility] Comment on above: Performed By: #### C MP #### [facility] [address] [place] [address] Dr. Nikolay Boudreaux ALP [Catalytic activity/Vol] 106 U/L Normal 38-126 [facility] Comment on above: Performed By: #### C MP #### [facility] [address] [place] [address] Dr. Nikloay Boudreaux ALT [Catalytic activity/Vol] 11 U/L Normal 9-52 [facility] Comment on above: Performed By: #### C MP #### [facility] [address] [place] [address] Dr. Nikolay Boudreaux Anion gap [Moles/Vol] 13.2 mmol/L Normal [facility] Comment on above: Performed By: #### C MP #### [facility] [address] [place] [address] [address] Nikolay Boudreaux AST [Catalytic activity/Vol] 13 U/L Critically low 14-36 [facility] Comment on above: Performed By: #### C MP #### [facility] [address] [place] [address] [address] Nikolay Boudreaux Bilirubin [Mass/Vol] 0.4 mg/dL Normal 0.2-1.3 [facility] Comment on above: Performed By: #### C MP #### [facility] [address] [place] [address] [address] Nikolay Boudreaux Calcium [Mass/Vol] 9.0 mg/dL Normal 8.4-10.2 [facility] Comment on above: Performed By: #### C MP #### [facility] [address] [place] [address] [address] Nikolay Boudreaux Chloride [Moles/Vol] 103 mmol/L Normal 98-107 [facility] Comment on above: Performed By: #### C MP #### [facility] [address] [place] [address] [address] Nikolay Boudreaux CO2 [Moles/Vol] 26.2 mmol/L Normal 22.0-30.0 [facility] Comment on above: Performed By: #### C MP #### [facility] [address] [place] [address] [address] Nikolay Boudreaux Creatinine [Mass/Vol] 1.04 mg/dL Normal 0.52-1.04 [facility] Comment on above: Performed By: #### C MP #### [facility] [address] [place] [address] [address] Nikolay Boudreaux EGFR-AF GERMAN >60 Normal >=60 [facility] Comment on above: Performed By: #### C MP #### [facility] [address] [place] [address] [address] Nikolay Boudreaux EGFR-NON AF GERMAN 51 mL/min/1.73m2 Critically low >=60 [facility] Comment on above: Performed By: #### C MP #### [facility] [address] [place] [address] [address] Nikolay Boudreaux Globulin (S) [Mass/Vol] 3.7 g/dL Normal [facility] Comment on above: Performed By: #### C MP #### [facility] [address] [place] [address] [address] Nikolay Boudreaux Glucose [Mass/Vol] 107 mg/dL Critically high 74-106 T [facility] Comment on above: Performed By: #### C MP #### [facility] [address] [place] [address] [address] Nikolay Boudreaux Potassium [Moles/Vol] 4.4 mmol/L Normal 3.4-5.0 [facility] Comment on above: Performed By: #### C MP #### [facility] [address] [place] [address] Dr. Nikolay Boudreaux Protein [Mass/Vol] 7.3 g/dL Normal 6.1-8.2 [facility] Comment on above: Performed By: #### C MP #### [facility] [address] [place] [address] Dr. Nikolay Boudreaux Sodium [Moles/Vol] 138 mmol/L Normal 137-145 [facility] Comment on above: Performed By: #### C MP #### [facility] [address] [place] [address] Dr. Nikolay Boudreaux Urea nitrogen [Mass/Vol] 19.0 mg/dL Critically high 7.0-17.0 [facility] Comment on above: Performed By: #### C MP #### [facility] [address] [place] [address] Dr. Nikolay Boudreaux Urea nitrogen/Creatinine [Mass ratio] 18.3 mg/mg Normal [facility] Comment on above: Performed By: #### C MP #### [facility] [address] [place] [address] Dr. Nikolay Boudreaux CBC AUTO DIFFon 04-01-2021 BASO # 0.1 103/ul Normal 0.0-0.1 [facility] Comment on above: Performed By: #### C BC #### [facility] [address] [place] [address] Dr. Nikolay Boudreaux Basophils/100 WBC (Bld) 1.5 % Normal 0.2-2.0 [facility] Comment on above: Performed By: #### C BC #### [facility] [address] [place] [address] Dr. Nikolay Boudreaux EO # 0.2 103/ul Normal 0.0-0.7 [facility] Comment on above: Performed By: #### C BC #### [facility] [address] [place] [address] Dr. Nikolay Boudreaux Eosinophils/100 WBC (Bld) 2.0 % Normal 0.9-7.0 [facility] Comment on above: Performed By: #### C BC #### [facility] [address] [place] [address] Dr. Nikolay Boudreaux Erythrocyte distribution width (RBC) [Ratio] 13.9 % Normal 11.0-15.0 [facility] Comment on above: Performed By: #### C BC #### [facility] [address] [place] [address] Dr. Nikolay Boudreaux Hematocrit (Bld) [Volume fraction] 42.9 % Normal 36.0-48.0 [facility] Comment on above: Performed By: #### C BC #### [facility] [address] [place] [address] Dr. Nikolay Boudreaux Hemoglobin (Bld) [Mass/Vol] 14.2 g/dL Normal 12.0-16.0 [facility] Comment on above: Performed By: #### C BC #### [facility] [address] [place] [address] Dr. Nikolay Boudreaux IG # 0.03 10e3/ul Normal 0.00-0.03 [facility] Comment on above: Performed By: #### C BC #### [facility] [address] [place] [address] Dr. Nikolay Boudreaux IG % 0.4 % Normal 0.0-0.5 [facility] Comment on above: Performed By: #### C BC #### [facility] [address] [place] [address] Dr. Nikolay Boudreaux LYMPH # 2.6 103/ul Normal 1.2-3.8 [facility] Comment on above: Performed By: #### C BC #### [facility] [address] [place] [address] Dr. Nikolay Boudreaux Lymphocytes/100 WBC (Bld) 32.7 % Normal 20.5-60.0 [facility] Comment on above: Performed By: #### C BC #### [facility] [address] [place] [address] Dr. Nikolay Boudreaux MANUAL DIFF REQ NO Normal [facility] Comment on above: Performed By: #### C BC #### [facility] [address] [place] [address] Dr. Nikolay Boudreaux MCH (RBC) [Entitic mass] 31.8 pg Normal 26.7-34.0 [facility] Comment on above: Performed By: #### C BC #### [facility] [address] [place] [address] Dr. Nikolay Boudreaux MCHC (RBC) [Mass/Vol] 33.1 g/dL Normal 29.9-35.2 [facility] Comment on above: Performed By: #### C BC #### [facility] [address] [place] [address] Dr. Nikolay Boudreaux MCV (RBC) [Entitic vol] 96.2 fL Normal 81.0-99.0 [facility] Comment on above: Performed By: #### C BC #### [facility] [address] [place] [address] Dr. Nikolay Boudreaux MONO # 0.6 103/ul Normal 0.3-0.8 [facility] Comment on above: Performed By: #### C BC #### [facility] [address] [place] [address] Dr. Nikolay Boudreaux Monocytes/100 WBC (Bld) 7.5 % Normal 1.7-12.0 [facility] Comment on above: Performed By: #### C BC #### [facility] [address] [place] [address] Dr. Nikolay Boudreaux NEUT # 4.4 103/ul Normal 1.4-6.5 [facility] Comment on above: Performed By: #### C BC #### [facility] [address] [place] [address] Dr. Nikolay Boudreaux Neutrophils/100 WBC (Bld) 55.9 % Normal 43.0-75.0 [facility] Comment on above: Performed By: #### C BC #### [facility] [address] [place] [address] Dr. Nikolay Boudreaux Platelet mean volume (Bld) [Entitic vol] 9.7 fL Normal 9.5-13.5 [facility] Comment on above: Performed By: #### C BC #### [facility] [address] [place] [address] Dr. Nikolay Boudreaux PLT 291 103/ul Normal 150-450 [facility] Comment on above: Performed By: #### C BC #### [facility] [address] [place] [address] Dr. Nikolay Boudreaux RBC 4.46 106/ul Normal 4.20-5.40 [facility] Comment on above: Performed By: #### C BC #### [facility] [address] [place] [address] Dr. Nikolay Boudreaux WBC 7.8 103/ul Normal 4.0-11.0 [facility] Comment on above: Performed By: #### C BC #### [facility] [address] [place] [address] Dr. Nikolay Boudreaux LIPID PROFILEon 04-01-2021 CHOL-HDL RATIO NORM SEE BELOW Normal [facility] Comment on above: Result Comment: 3.3 - 4.4 LOW RISK 4.4 - 7.1 AVERAGE RISK 7.1 - 11.0 MODERATE RISK >11.0 HIGH RISK Performed By: #### L IPID, CMP #### [facility] [address] [place] [address] Dr. Nikolay Boudreaux Cholesterol [Mass/Vol] 210 mg/dL Critically high <=200 [facility] Comment on above: Performed By: #### L IPID, CMP #### [facility] [address] [address] [address] Nikolay Boudreaux Cholesterol in HDL [Mass/Vol] 44 mg/dL Normal [facility] Comment on above: Performed By: #### L IPID, CMP #### [facility] [address] [address] [address] Nikolay Boudreaux Cholesterol in LDL [Mass/Vol] 140.4 mg/dL Normal [facility] Comment on above: Performed By: #### L IPID, CMP #### [facility] [address] [address] [address] Nikolay Boudreaux Cholesterol.total/C holesterol in HDL [Mass ratio] 4.8 {ratio} Normal [facility] Comment on above: Performed By: #### L IPID, CMP #### [facility] [address] [place] [address] Dr. Nikolay Boudreaux HDL NORMAL > or = 60 mg/dl - LO W CARDIOVASCULAR RISK <40 mg/dl - HIGH CARDIOVASCULAR RISK Normal [facility] Comment on above: Performed By: #### L IPID, CMP #### [facility] [address] [place] [address] Dr. Nikolay Boudreaux LDL CALC NORMAL SEE BELOW Normal [facility] Comment on above: Result Comment: <100 mg/dl OPTIMAL 100 - 129 mg/dl NEAR OR ABOVE OPTIMAL 130 - 159 mg/dl BORDERLINE HIGH 160 - 189 mg/dl HIGH >190 mg/dl VERY HIGH Performed By: #### L IPID, CMP #### [facility] [address] [place] [address] Dr. Nikolay Boudreaux Triglyceride [Mass/Vol] 128 mg/dL Normal <=150 [facility] Comment on above: Performed By: #### L IPID, CMP #### [facility] [address] [place] [address] Dr. Nikolay Boudreaux VLDL CALC 25.6 mg/dL Normal [facility] Comment on above: Performed By: #### L IPID, CMP #### [facility] [address] [place] [address] Dr. Nikolay Boudreaux PROF 14(COMP METB)on 021 Albumin [Mass/Vol] 4.0 g/dL Normal 3.5-5.0 [facility] Comment on above: Performed By: #### L IPID, CMP #### [facility] [address] [place] [address] Dr. Nikolay Boudreaux Albumin/Globulin [Mass ratio] 1.0 {ratio} Normal [facility] Comment on above: Performed By: #### L IPID, CMP #### [facility] [address] [address] [address] Nikolay Boudreaux ALP [Catalytic activity/Vol] 101 U/L Normal 38-126 [facility] Comment on above: Performed By: #### L IPID, CMP #### [facility] [address] [place] [address] Dr. Nikolay Boudreaux ALT [Catalytic activity/Vol] 14 U/L Normal 9-52 [facility] Comment on above: Performed By: #### L IPID, CMP #### [facility] [address] [place] [address] Dr. Nikolay Boudreaux Anion gap [Moles/Vol] 13.2 mmol/L Normal [facility] Comment on above: Performed By: #### L IPID, CMP #### [facility] [address] [place] [address] Dr. Nikolay Boudreaux AST [Catalytic activity/Vol] 16 U/L Normal 14-36 [facility] Comment on above: Performed By: #### L IPID, CMP #### [facility] [address] [place] [address] Dr. Nikolay Boudreaux Bilirubin [Mass/Vol] 0.2 mg/dL Normal 0.2-1.3 [facility] Comment on above: Performed By: #### L IPID, CMP #### [facility] [address] [place] [address] Dr. Nikolay Boudreaux Calcium [Mass/Vol] 9.4 mg/dL Normal 8.4-10.2 [facility] Comment on above: Performed By: #### L IPID, CMP #### [facility] [address] [place] [address] Dr. Nikolay Boudreaux Chloride [Moles/Vol] 102 mmol/L Normal 98-107 [facility] Comment on above: Performed By: #### L IPID, CMP #### [facility] [address] [address] [address] Nikolay Boudreaux CO2 [Moles/Vol] 26.6 mmol/L Normal 22.0-30.0 [facility] Comment on above: Performed By: #### L IPID, CMP #### [facility] [address] [address] [address] Nikolay Boudreuax Creatinine [Mass/Vol] 0.97 mg/dL Normal 0.52-1.04 [facility] Comment on above: Performed By: #### L IPID, CMP #### [facility] [address] [place] [address] Dr. Nikolay Boudreaux EGFR-AF GERMAN >60 Normal >=60 [facility] Comment on above: Performed By: #### L IPID, CMP #### [facility] [address] [address] [address] Nikolay Boudreaux EGFR-NON AF GERMAN 55 mL/min/1.73m2 Critically low >=60 [facility] Comment on above: Performed By: #### L IPID, CMP #### [facility] [address] [place] [address] Dr. Nikolay Boudreaux Globulin (S) [Mass/Vol] 3.9 g/dL Normal [facility] Comment on above: Performed By: #### L IPID, CMP #### [facility] [address] [address] [address] Nikolay Boudreaux Glucose [Mass/Vol] 100 mg/dL Normal 74-106 [facility] Comment on above: Performed By: #### L IPID, CMP #### [facility] [address] [place] [address] Dr. Nikolay Boudreaux Potassium [Moles/Vol] 3.8 mmol/L Normal 3.4-5.0 [facility] Comment on above: Performed By: #### L IPID, CMP #### [facility] [address] [place] [address] Dr. Nikolay Boudreaux Protein [Mass/Vol] 7.9 g/dL Normal 6.1-8.2 [facility] Comment on above: Performed By: #### L IPID, CMP #### [facility] [address] [place] [address] Dr. Nikolay Boudreaux Sodium [Moles/Vol] 138 mmol/L Normal 137-145 [facility] Comment on above: Performed By: #### L IPID, CMP #### [facility] [address] [place] [address] Dr. Nikolay Boudreaux Urea nitrogen [Mass/Vol] 23.0 mg/dL Critically high 7.0-17.0 [facility] Comment on above: Performed By: #### L IPID, CMP #### [facility] [address] [place] [address] Dr. Nikolay Boudreaux Urea nitrogen/Creatinine [Mass ratio] 23.7 mg/mg Normal [facility] Comment on above: Performed By: #### L IPID, CMP #### [facility] [address] [place] [address] Dr. Nikolay Boudreaux MRI CARDIAC RESONANCE JORDAN GING FOR VELOCITY FLOW MAPPING 01-15-2019 MRI CARDIAC RESONANCE IMAGING FOR VELOCITY FLOW MAPPING [place] C[facility] Report Name: JODY TATUM : 1940 Scan Date: 2019-01-15 13:20:00 Electronically signed by JUAN TERRELL 10:14:20 VITALS HEIGHT/WEIGHT HEIGHT: 68.00 in 172.72 cm WEIGHT: 165.35 lbs 75.00 kgs BSA/BP BSA: 1.89 m^2 HEART RATE/RHYTHM BASELINE HR: 0 BPM FINAL IMPRESSION: 1. Dilated left ventricle with severely depressed systolic function. Ejection fraction 23%. 2. Mild eccentric left ventricular hypertrophy. 3. Normal right ventricular cavity size with mildly depressed RV systolic function. RVEF 55%. 4. Normal size atria. 5. Mildly thickened mitral valve leaflets with moderate mitral valve regurgitation. 6. 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 7. Incidental right hilar mass 1.7 cm posterior/inferior to right superior pulmonary vein. Poorly defined in this study. Advise correlation with CT chest. SUMMARY LEFT VENTRICLE: Quantitative LVEF 23%. There is eccentric LVH. There is mild LV hypertrophy. LV cavity is moderately enlarged. LV systolic function is regionally impaired. VIABILITY: LV infarct/scar size is 16%. RIGHT VENTRICLE: Quantitative RVEF 55%. RV cavity size is normal. RV systolic function is mildly decreased globally. LV/RV SEPTUM: The ventricular septum is intact. LA/RA SEPTUM: The atrial septum is intact. LEFT ATRIUM: LA cavity size is normal. RIGHT ATRIUM: RA cavity size is normal. PERICARDIUM: Pericardium is normal. There is no pericardial effusion. PLEURAL EFFUSION: There is no pleural effusion. AORTIC VALVE: Aortic valve leaflets are normal. PEAK AORTIC VALVE VELOCITY 154.97CM/SEC. There is no aortic stenosis. There is no aortic regurgitation. MITRAL VALVE: Mitral valve is mildly thickened. There is moderate mitral regurgitation. TRICUSPID VALVE: Tricuspid valve leaflets are normal. There is trivial tricuspid regurgitation. AORTIC ROOT: The aortic root is normal. OTHER FINDINGS: Right hilar mass 1.7 cm posterior/inferior to right superior pulmonary vein. Poorly defined in this study. Advise correlation with CT chest. CORE EXAM MEASUREMENTS VOLUMETRIC ANALYSIS . . . . . LV . Reference . RV . Reference . +------+ +--- ----+ +------ + + . EDV . ml . 205 . (77-158) . 82 . (69-153) . . . ml/m^2 . 108.5 . (50-84) . 43.4 . (45-82) . . ESV . ml . 158 . (18-55) . 37 . (6-58) . . . ml/m^2 . 83.6 . (12-30) . 19.6 . (6-32) . . CO . L/min . 3.34 . . 3.19 . . . . L/min/m^2 . 1.8 . . 1.7 . . . MASS . g . 169 . (74-146) . . . . . g/m^2 . 89.4 . (49-78) . . . . SV . ml . 47 . (54-109) . 45 . (53-105) . . . ml/m^2 . 24.9 . (34-59) . 23.8 . (33-57) . . EF . % . 23 . (60-78) . 55 . (59-83) . '------+ +--- ----+ +------ + ' CARDIAC OUTPUT HR: 71 bpm LV DIMENSIONS WALL THICKNESS - ANTEROSEPTAL: 1.0 cm WALL THICKNESS - INFEROLATERAL: 0.7 cm LV PEDRO: 6.8 cm LV ESD: 5.9 cm LA DIMENSIONS (LV SYSTOLE) DIAMETER: 3.9 cm AREA - 2 CHAMBER: 16.9 cm^2 LENGTH - 2 CHAMBER: 5.3 cm AREA - 4 CHAMBER: 22.9 cm^2 LENGTH - 4 CHAMBER: 5.2 cm VOLUME: 63 ml AORTIC ROOT DIMENSIONS ANNULUS: 2.5 cm SINUS OF VALSALVA: 3.0 cm SINOTUBULAR JUNCTION: 2.5 cm FLOW ANALYSIS QP: 2.16 L/min QS: 3.76 L/min QP/QS: 0.57 17 SEGMENT . - . . Segments . Wall Motion . Hyperenhancement . Stress Perfusion . Interpretation . + +- +-------- + - -----+ + . Base Anterior . Mild/Mod Hypo . None . . . . Base Anteroseptal . Severe Hypo . None . . . . Base Inferoseptal . Akinetic . 76-100% . . . . Base Inferior . Akinetic . 1-25% . . . . Base Inferolateral . Mild/Mod Hypo . None . . . . Base Anterolateral . Mild/Mod Hypo . None . . . . Mid Anterior . Severe Hypo . None . . . . Mid Anteroseptal . Severe Hypo . None . . . . Mid Inferoseptal . Severe Hypo . 51-75% . . . . Mid Inferior . Akinetic . 26-50% . . . . Mid Inferolateral . Severe Hypo . None . . . . Mid Anterolateral . Severe Hypo . None . . . . Apical Anterior . Severe Hypo . None . . . . Apical Septal . Akinetic . None . . . . Apical Inferior . Akinetic . 51-75% . . . . Apical Lateral . Severe Hypo . None . . . . Brodhead . Severe Hypo . None . . . + +- +-------- + - -----+ + . RV Segments . Wall Motion . Hyperenhancement . Stress Perfusion . Interpretation . + +- +-------- + - -----+ + . RV Basal Anterior . . None . . . . RV Basal Inferior . . None . . . . RV Mid . . None . . . . RV Apical . . None . . . ' +- +-------- + - -----+ ' FINDINGS INFARCT/SCAR SIZE: 16 % SCAN INFO GENERAL CONTRAST AGENT TYPE: Multihance VOLUME ADMINISTERED: 20 ml DOSAGE FOR 0.5M: 0.13 mmol/kg PULSE SEQUENCES Single-Shot SSFP, IR GRE - Segmented, SSFP Cine, Phase Contrast Velocity Mapping SETUP REFERRING PHYSICIAN: HUMBERTO ARNDT ATTENDING PHYSICIAN: HUMBERTO ARNDT Report generated by [employer], a product of [employer] Electronically signed by: DO Tonya LOPEZ [facility] MRI CARDIAC W/WO CONTRAST FOR MORPH/FUNCT AND VALVE [facility] 01-15-2019 MRI CARDIAC W/WO CONTRAST FOR MORPH/FUNCT AND VALVE [facility] CMR Report Name: RCJANYJODY : 1940 Scan Date: 2019-01-15 13:20:00 Electronically signed by JUAN TERRELL 10:14:20 VITALS HEIGHT/WEIGHT HEIGHT: 68.00 in 172.72 cm WEIGHT: 165.35 lbs 75.00 kgs BSA/BP BSA: 1.89 m^2 HEART RATE/RHYTHM BASELINE HR: 0 BPM FINAL IMPRESSION: 1. Dilated left ventricle with severely depressed systolic function. Ejection fraction 23%. 2. Mild eccentric left ventricular hypertrophy. 3. Normal right ventricular cavity size with mildly depressed RV systolic function. RVEF 55%. 4. Normal size atria. 5. Mildly thickened mitral valve leaflets with moderate mitral valve regurgitation. 6. 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 7. Incidental right hilar mass 1.7 cm posterior/inferior to right superior pulmonary vein. Poorly defined in this study. Advise correlation with CT chest. SUMMARY LEFT VENTRICLE: Quantitative LVEF 23%. There is eccentric LVH. There is mild LV hypertrophy. LV cavity is moderately enlarged. LV systolic function is regionally impaired. VIABILITY: LV infarct/scar size is 16%. RIGHT VENTRICLE: Quantitative RVEF 55%. RV cavity size is normal. RV systolic function is mildly decreased globally. LV/RV SEPTUM: The ventricular septum is intact. LA/RA SEPTUM: The atrial septum is intact. LEFT ATRIUM: LA cavity size is normal. RIGHT ATRIUM: RA cavity size is normal. PERICARDIUM: Pericardium is normal. There is no pericardial effusion. PLEURAL EFFUSION: There is no pleural effusion. AORTIC VALVE: Aortic valve leaflets are normal. PEAK AORTIC VALVE VELOCITY 154.97CM/SEC. There is no aortic stenosis. There is no aortic regurgitation. MITRAL VALVE: Mitral valve is mildly thickened. There is moderate mitral regurgitation. TRICUSPID VALVE: Tricuspid valve leaflets are normal. There is trivial tricuspid regurgitation. AORTIC ROOT: The aortic root is normal. OTHER FINDINGS: Right hilar mass 1.7 cm posterior/inferior to right superior pulmonary vein. Poorly defined in this study. Advise correlation with CT chest. CORE EXAM MEASUREMENTS VOLUMETRIC ANALYSIS . . . . . LV . Reference . RV . Reference . +------+ +--- ----+ +------ + + . EDV . ml . 205 . (77-158) . 82 . (69-153) . . . ml/m^2 . 108.5 . (50-84) . 43.4 . (45-82) . . ESV . ml . 158 . (18-55) . 37 . (6-58) . . . ml/m^2 . 83.6 . (12-30) . 19.6 . (6-32) . . CO . L/min . 3.34 . . 3.19 . . . . L/min/m^2 . 1.8 . . 1.7 . . . MASS . g . 169 . (74-146) . . . . . g/m^2 . 89.4 . (49-78) . . . . SV . ml . 47 . (54-109) . 45 . (53-105) . . . ml/m^2 . 24.9 . (34-59) . 23.8 . (33-57) . . EF . % . 23 . (60-78) . 55 . (59-83) . '------+ +--- ----+ +------ + ' CARDIAC OUTPUT HR: 71 bpm LV DIMENSIONS WALL THICKNESS - ANTEROSEPTAL: 1.0 cm WALL THICKNESS - INFEROLATERAL: 0.7 cm LV PEDRO: 6.8 cm LV ESD: 5.9 cm LA DIMENSIONS (LV SYSTOLE) DIAMETER: 3.9 cm AREA - 2 CHAMBER: 16.9 cm^2 LENGTH - 2 CHAMBER: 5.3 cm AREA - 4 CHAMBER: 22.9 cm^2 LENGTH - 4 CHAMBER: 5.2 cm VOLUME: 63 ml AORTIC ROOT DIMENSIONS ANNULUS: 2.5 cm SINUS OF VALSALVA: 3.0 cm SINOTUBULAR JUNCTION: 2.5 cm FLOW ANALYSIS QP: 2.16 L/min QS: 3.76 L/min QP/QS: 0.57 17 SEGMENT . - . . Segments . Wall Motion . Hyperenhancement . Stress Perfusion . Interpretation . + +- +-------- + - -----+ + . Base Anterior . Mild/Mod Hypo . None . . . . Base Anteroseptal . Severe Hypo . None . . . . Base Inferoseptal . Akinetic . 76-100% . . . . Base Inferior . Akinetic . 1-25% . . . . Base Inferolateral . Mild/Mod Hypo . None . . . . Base Anterolateral . Mild/Mod Hypo . None . . . . Mid Anterior . Severe Hypo . None . . . . Mid Anteroseptal . Severe Hypo . None . . . . Mid Inferoseptal . Severe Hypo . 51-75% . . . . Mid Inferior . Akinetic . 26-50% . . . . Mid Inferolateral . Severe Hypo . None . . . . Mid Anterolateral . Severe Hypo . None . . . . Apical Anterior . Severe Hypo . None . . . . Apical Septal . Akinetic . None . . . . Apical Inferior . Akinetic . 51-75% . . . . Apical Lateral . Severe Hypo . None . . . . Brodhead . Severe Hypo . None . . . + +- +-------- + - -----+ + . RV Segments . Wall Motion . Hyperenhancement . Stress Perfusion . Interpretation . + +- +-------- + - -----+ + . RV Basal Anterior . . None . . . . RV Basal Inferior . . None . . . . RV Mid . . None . . . . RV Apical . . None . . . ' +- +-------- + - -----+ ' FINDINGS INFARCT/SCAR SIZE: 16 % SCAN INFO GENERAL CONTRAST AGENT TYPE: Multihance VOLUME ADMINISTERED: 20 ml DOSAGE FOR 0.5M: 0.13 mmol/kg PULSE SEQUENCES Single-Shot SSFP, IR GRE - Segmented, SSFP Cine, Phase Contrast Velocity Mapping SETUP REFERRING PHYSICIAN: HUMBERTO ARNDT ATTENDING PHYSICIAN: HUMBERTO ARNDT Report generated by [employer], a product of [employer] Electronically signed by: DO Tonya LOPEZ [facility] Coding Summary.on 07-07-2017 Coding Summary. 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 However, the narrative phrase printed from the coding software may appear abbreviated, or result in slightly different terminology. Coded By: Jocelyn Munoz Date Saved: 07/07/2017 08:49 am [facility] Main OR Intraoperative Recor don 07-04-2017 Main OR Intraoperative Record IntraOp Document Type FTURO Summary Primary Physician: René Arias MD Finalized Date/Time: 07/04/17 12:55:30 Pt. Name: JODY TATUM/Sex: 1940 Female Med Rec #: [id number] Physician: René Arias MD Financial #: [id number] Pt. Type: O Room/Bed: / Admit/Disch: 07/04/17 10:24:02 - Institution: Case Times FTURO Entry 1 Patient Times In Room 07/04/17 10:59:00 Out Room 07/04/17 11:15:00 Procedure Times Start 07/04/17 11:03:00 Stop 07/04/17 11:10:00 Anesthesia Times Last Modified By: MARTA Eaton RN, Melody 07/04/17 11:10:09 Case Attendance FTURO Entry 1 Entry 2 Entry 3 Case Attendee Uma DUNCAN, CHEROR, Zandra LEROY, Shanel Arias MD, René Oliver Role Performed Chief Wharfinger - Primary Scrub - Primary Surgeon - Primary Time In 07/04/17 10:59:00 07/04/17 10:59:00 07/04/17 10:59:00 Time Out 07/04/17 11:15:00 07/04/17 11:15:00 07/04/17 11:15:00 Procedure CYSTOSCOPY LOCAL WITH CYSTOSCOPY LOCAL WITH CYSTOSCOPY LOCAL WITH URETHRAL DILATION(.) URETHRAL DILATION(.) URETHRAL DILATION(.) Comments Last Modified By: CHER Eaton RNOR, MARTA Eaton RN, MARTA Eaton RN, Melody 07/04/17 Melody 07/04/17 Melody 07/04/17 11:10:11 11:10:11 11:10:11 Surgical Procedures FTURO Entry 1 Procedure Description Procedure CYSTOSCOPY LOCAL WITH Modifiers . URETHRAL DILATION Surgeon Description CYSTOSCOPY WITH UD Primary Procedure Yes Primary Surgeon Juana MOORE, René Underwood 07/04/17 11:03:00 Stop 07/04/17 11:10:00 Anesthesia Type Local Surgical Service Urology Wound Class 2 - Clean-Contaminated Last Modified By: MARTA Eaton RN, Ruthann 07/04/17 11:10:14 General Case Data FTURO Pre-Care Text: Classifies surgical wound, implements aseptic technique, initiates traffic control Entry 1 Case Information OR URO 1 FT Case Level None Wound Class 2 - Clean-Contaminated Specialty Urology Preop Diagnosis CHRONIC CYSTITIS, Postop Same As Preop No HEMATURIA Postop Diagnosis URETHRAL STRICTURE Outcomes Met? Yes Last Modified By: MARTA Eaton RN, Melody 07/04/17 11:10:31 Post-Care Text: The patient is free from signs and symptoms of infection EU IntraOp - FTURO Pre-Care Text: Implements protective measures prior to operative or invasive procedure, confirms identity before the operative or invasive procedure, verifies operative procedure, surgical site, and laterality Entry 1 EU Perioperative Protocols Procedure(s) CYSTOSCOPY LOCAL WITH Patient Identity Birthday, ID Band URETHRAL DILATION(.) Verified (select at Check, Patient least 2): Participation Consents / H and P HandP, Surgery/Procedure Operative Site N/A Verified Consent Marking Verified Surgical Site Yes Laterality Verified n/a Verified Procedure Verified Yes Correct Patient Yes Position Verified Availability Equipment, Medication Time Out MARTA Eaton RN, Verified (If Participants Zandra Oliver [employer]NAGEMENT OFFICER, Applicable) Juana Ugarte MD, Patrick R. Time Out Complete 07/04/17 11:00:00 Allergies Reviewed? Yes Allergies Reviewed Self/Patient With Body Position Frog Legged Prep Area perineal area Prep Agents Betadine Solution Skin. Condition Intact Additional None Specimens Collected Vitals - EU Blood Pressure 150/79 Pulse 65 bpm Respirations SPO2 EBL 0 IandO - EU Total Intake 0 mL Total Output 0 mL Outcomes Met? Yes Last Modified By: MARTA Eaton RN, Ruthann 07/04/17 11:03:25 Post-Care Text: The patient is free from signs and symptoms of injury caused by extraneous objects General Comments: fish done pre-op Case Comments Finalized By: MARTA Eaton RN, Ruthann Document Signatures Signed By: MARTA Eaton RN, Ruthann 07/04/17 11:10 MARTA Eaton RN, Ruthann 07/04/17 12:55 Normal [facility] Main OR Preoperative Recordo n 07-04-2017 Main OR Preoperative Record Holding Area Document Type FTURO Summary Primary Physician: René Arias MD Finalized Date/Time: 07/04/17 12:55:22 Pt. Name: JODY TATUM/Sex: 1940 Female Med Rec #: [id number] Physician: René Arias MD Financial #: [id number] Pt. Type: O Room/Bed: / Admit/Disch: 07/04/17 10:24:02 - Institution: Case Times Holding FTURO Pre-Care Text: Verifies consent for planned procedure, identifies individual values and wishes concerning care, includes family members in perioperative teaching Secures patient's records' belongings, and valuables, maintains patient's dignity and privacy, and maintains patient confidentiality Entry 1 In Holding 07/04/17 10:28:00 Outcomes Met? Yes Last Modified By: Lyn Hennessy LPN 07/04/17 10:28:45 Post-Care Text: The patient participates in decisions affecting his or her perioperative plan of care The patient's right to privacy is maintained Surgery Checklist FTURO Entry 1 Patient Birthday, ID Band Procedure History and Physical, Identification: Check, Patient Verification: Surgical Consent, With Participation Patient NPO after Midnight: n/a Personal Items: Cataract Lens Implant, Glasses, Jewelry Personal Items RING Complaints of Pain: No Comment: Skin Integrity Intact, [place], Warm, & Dry Vitals - EU Blood Pressure 149/80 Pulse 68 bpm Respirations 18 br/min SPO2 RN Reviewed Yes Last Modified By: MARTA Eaton RN, Ruthann 07/04/17 11:01:07 Finalized By: MARTA Eaton RN, Ruthann Document Signatures Signed By: Lyn Hennessy LPN 07/04/17 10:32 MARTA Eaton RN, Ruthann 07/04/17 11:01 MARTA Eaton RN, Ruthann 07/04/17 11:09 MARTA Eaton RN, Ruthann 07/04/17 12:55 Normal [facility] Operative Reporton Operative Report Patient: JODY TATUM Age: 77 years Sex: Female : 1940 Associated Diagnoses: None Author: René Arias MD Procedure Operative Information Details: Date/ Time: 07/04/17 11:13:00. Pre-Op Dx: Hx of UTI's - Z87.440, Incomplete Bladder Emptying - R39.14, Urethral Stricture - Other Post Infective Female - N35.12. Post-Op Dx: Same. Anesthesia Type: Local. Procedure: Local Cystoscopy with Urethral Dilation. Complications: None. Risks/Benefits/Informed Consent: Surgical risks, benefits, details of the procedure have been explained to the patient, Full informed consent has been obtained. Intraoperative Information Prepped: Patient is brought back to the endoscopy suite, Patient is placed in modified dorso/lithotomy position, Patient prepped in the usual fashion with Betadine solution, 2% Xylocaine Jelly is placed per Urethra, After waiting several minutes the Cystoscope is introduced. The Urethra is: Tight. The Bladder is: R wall tic. no b.t. mod a.v.. The ureteral orifices: Show efflux of clear urine. The Urethra was dilated to: 30 [place] w/ sounds. Devices Implanted: None. Removal: Cystoscope is removed, The patient tolerated it well. Postoperative Information Discharge: Patient is discharged home with antibiotic coverage, Follow up arranged. Normal [facility] Comment on above: Result Comment: Elec tronically Signed By: Juana MOORE, René Rosales.br\Date and Time Signed: 07/04/17 11:15 EST Vital Signs Date Time Vital Sign Value Performing Clinician Facility 02-27-2024 11:48-0400 Body height 172.72 cm [facility] 02-27-2024 11:48-0400 Body mass index (BMI) [Ratio] 13.6 kg/m2 [facility] 02-27-2024 11:48-0400 Body weight 40.53 kg [facility] 02-27-2024 11:48-0400 Diastolic blood pressure 76 mm[Hg] [facility] 02-27-2024 11:48-0400 Heart rate 98 /min [facility] 02-27-2024 11:48-0400 Systolic blood pressure 115 mm[Hg] [facility] 04-04-2023 10:00-0400 Body height 165.1 cm Leyla Choi Other [facility] Other 04-04-2023 10:00-0400 Body mass index (BMI) [Ratio] 15.84 kg/m2 Leyla Choi Other [facility] Other 04-04-2023 10:00-0400 Body weight 43.18 kg Leyla Choi Other [facility] Other 04-04-2023 10:00-0400 Diastolic blood pressure 68 mm[Hg] Leyla Choi Other [facility] Other 04-04-2023 10:00-0400 SaO2% (BldA) [Mass fraction] 93 % eLyla Choi Other [facility] Other 04-04-2023 10:00-0400 Systolic blood pressure 117 mm[Hg] Leyla Choi Other [facility] Other 10-24-2022 10:45-0400 Body height 165.1 cm Leyla Choi Other [facility] Other 10-24-2022 10:45-0400 Body mass index (BMI) [Ratio] 16.21 kg/m2 Lelya Choi Other [facility] Other 10-24-2022 10:45-0400 Body weight 44.18 kg Leyla Choi Other [facility] Other 10-24-2022 10:45-0400 Diastolic blood pressure 68 mm[Hg] Leyla Choi Other [facility] Other 10-24-2022 10:45-0400 SaO2% (BldA) [Mass fraction] 97 % Leyla Choi Other [facility] Other 10-24-2022 10:45-0400 Systolic blood pressure 124 mm[Hg] Leyla Choi Other [facility] Other 07-25-2022 10:45-0500 Body height 165.1 cm Leyla Choi Other [facility] Other 07-25-2022 10:45-0500 Body mass index (BMI) [Ratio] 16.47 kg/m2 Leyla Choi Other [facility] Other 07-25-2022 10:45-0500 Body weight 44.91 kg Leyla Choi Other [facility] Other 07-25-2022 10:45-0500 Diastolic blood pressure 76 mm[Hg] Leyla Choi Other [facility] Other 07-25-2022 10:45-0500 Systolic blood pressure 120 mm[Hg] Leyla Choi Other [facility] Other 04-14-2022 09:45-0400 25 1 Leyla Choi Work Phone: [facility] [address] [place] Work Phone: Comment on above: [id number] 03-10-2022 15:19-0400 Body height 172.72 cm Leyla Choi Work Phone: [facility] [address] [place] Work Phone: 03-10-2022 15:19-0400 Body mass index (BMI) [Ratio] 14.94 kg/m2 Leyla Choi Work Phone: [facility] [address] DO Work Phone: 03-10-2022 15:19-0400 Body surface area Derived from formula 1.51 m2 Leyal Choi Work Phone: [facility] [address] [facility] Work Phone: 03-10-2022 15:19-0400 Body weight 44.57 kg Leyla Choi Work Phone: [facility] [place] Work Phone: 03-10-2022 15:19-0400 Diastolic blood pressure 80 mm[Hg] Leyla Choi Work Phone: [facility] [address] Work Phone: 03-10-2022 15:19-0400 Heart rate 86 /min Leyla Choi Work Phone: [facility] [place] Work Phone: 03-10-2022 15:19-0400 Systolic blood pressure 122 mm[Hg] Leyla Bustillos Jimbo Work Phone: [facility] [place] Work Phone: 03-08-2022 13:15-0400 Body height 172.72 cm Shanti Lorenzovalente Other [facility] Other 03-08-2022 13:15-0400 Body mass index (BMI) [Ratio] 16.72 kg/m2 Shanti Sun Other [facility] Other 03-08-2022 13:15-0400 Body temperature 97.2 [degF] Shanti Lorenzovalente Other [facility] Other 03-08-2022 13:15-0400 Body weight 49.9 kg Shanti Lorenzovalente Other [facility] Other 03-08-2022 13:15-0400 Diastolic blood pressure 78 mm[Hg] Shanti Sun Other [facility] Other 03-08-2022 13:15-0400 SaO2% (BldA) [Mass fraction] 98 % Shanti Sun Other [facility] Other 03-08-2022 13:15-0400 Systolic blood pressure 122 mm[Hg] Shanti Sun Other [facility] Other Encounters Encounter Date Encounter Type Care Provider Facility Start: 02-27-2024 End: 02-27-2024 ambulatory [facility] Work Phone: Start: 02-27-2024 End: 02-27-2024 Patient encounter procedure [facility] Work Phone: Start: 09-07-2023 End: 09-08-2023 Emergency department patient visit Leyla Bustillos Jimbo Facility:[facility] Start: 07-10-2023 End: 07-10-2023 ambulatory Leyla Choi Other [facility] Other Start: 07-10-2023 Telephone encounter Leyla Jimbo [facility] Start: 07-07-2023 End: 07-07-2023 ambulatory Leyla Choi Other [facility] Other Start: 07-07-2023 Telephone encounter Leyla Jimbo [facility] Start: 07-04-2023 End: 07-04-2023 ambulatory Leyla Choi Other [facility] Other Start: 07-04-2023 Telephone encounter Leyla Jimbo [facility] Start: 04-04-2023 End: 04-04-2023 ambulatory Leyla Jimbo Other [facility] Other Start: 04-04-2023 Office outpatient vi sit 25 minutes Leyla Jimbo [facility] Start: 04-04-2023 Telephone encounter Leyla Choi [facility] Start: 02-13-2023 End: 02-13-2023 ambulatory Leyla Choi Other [facility] Other Start: 02-13-2023 Telephone encounter Leyla Choi [facility] Start: 11-03-2022 End: 11-03-2022 ambulatory Leyla Choi Other [facility] Other Start: 11-03-2022 Telephone encounter Leyla Choi [facility] Start: 10-24-2022 End: 10-24-2022 ambulatory Leyla Choi Other [facility] Other Start: 10-24-2022 Office outpatient vi sit 15 minutes Leyla Jimbo [facility] Start: 09-23-2022 End: 09-23-2022 ambulatory Finesse Tomlinson Other [facility] Other Start: 09-23-2022 Telephone encounter Finesse Tomlinson [facility] Start: 07-25-2022 End: 07-25-2022 ambulatory Leyla Choi Other [facility] Other Start: 07-25-2022 Office outpatient vi sit 25 minutes Leyla Choi [facility] Start: 07-25-2022 Telephone encounter Leyla Choi [facility] Start: 05-02-[address] Carolina Ly ty: Start: 04-14-2022 Patient encounter procedure Leyla Choi Work Phone: [facility] [address] [place] Work Phone: Start: 03-10-2022 Office outpatient vi sit 40 minutes Leyla Choi Work Phone: [facility] [place] Work Phone: Start: 03-10-[address] Leyla Choi Facility: Start: 03-08-2022 End: 03-08-2022 ambulatory Shanti Garsia Other [facility] Other Start: 03-08-2022 [facility] visit new patient Shanti mejia [facility] Start: 03-03-2022 End: 03-04-[address] LI PABON Facility:[facility] Start: 02-24-2022 Adult health examination Leyla Choi Other [facility] Other Start: 04-12-2021 End: 04-13-[address] LEYLA CHOI Facility:[facility] Start: 04-01-2021 End: 04-02-[address] LEYLA CHOI Facility:[facility] Start: 10-26-2018 End: 10-27-2018 Patient encounter procedure DEFAULT PHYSICIAN Facility:[facility] Start: 07-04-2017 End: 07-05-2017 Ambulatory René Arias Facility:[facility] Patient encounter status Leyla Apollo Jimbo Work Phone: [facility] [address] Work Phone: Procedures Date Procedure Procedure Detail Performing Clinician Start: 04-14-2022 Echocardiography Leyla Choi Work Phone: Start: 07-03-2015 Total colonoscopy Carey Choi Work Phone: Appendectomy Leyla Choi Work Phone: Arthroscopy of knee Leyla Choi Work Phone: Comment on above: right; Biopsy of breast Leyla Fernandez aun Work Phone: Comment on above: Left; Cataract surgery Leyla gutierrez Work Phone: Cholecystectomy Leyla fairchild Work Phone: Depression screening Leyla Choi Other Procedure on back Leyla Roberts raun Work Phone: Comment on above: X3; Release of trigger finger Ma iman Choi Work Phone: Comment on above: right thumb; Repair of shoulder Leyla Choi Work Phone: Comment on above: bilateral; Plan of Treatment Date Care Activity Detail Author Start: 02-27-2024 Patient referral [facility] Work Phone: Start: 05-02-2022 FUV, Provider: Carolina Quezada, Status: Pen, Time: 10:15 AM FUV, Provider: Carolina Quezada, Status: Pen, Time: 10:15 AM [facility] [address] Work Phone: Start: 04-14-2022 ECHO, Provider: AMNA PADILLA ULTRASOUND , Status: Pen, Time: 10:45 AM ECHO, Provider: AMNA PADILLA ULTRASOUND , Status: Pen, Time: 10:45 AM [facility] [address] DO Work Phone: Start: 04-14-2022 CAROTID, Provider: AMNA ORTIZI ULTRASOUND ,[id number], Status: Pen, Time: 9:45 AM CAROTID, Provider: AMNA HHVI ULTRASOUND ,[id number], Status: Pen, Time: 9:45 AM [facility] [address] DO Work Phone: Patient referral [facility] Work Phone: XR Foot - right GE 3 Views [facility] Immunizations Immunization Date Immunization Notes Care Provider Fa cility 09-07-2023 tetanus toxoid, redu isidoro diphtheria toxoid, and acellular pertussis vaccine, adsorbed [facility] 08-21-2020 Pfizer-BioNTech COVID-19 Vacc 30 MCG/0.3ML Intramuscular Suspension Leyla Choi Work Phone: [facility] 07-31-2020 COVID-19 Vaccine Moderna - Documentation Purposes Only Leyla Choi Other [facility] 07-31-2020 Pfizer-BioNTech COVID-19 Vacc 30 MCG/0.3ML Intramuscular Suspension Leyla Choi Work Phone: [facility] [address] Work Phone: 05-02-2018 influenza virus vaccine, split virus (incl. purified surface antigen) Leyla Choi Other [facility] Other 05-02-2018 influenza virus vaccine, unspecified formulation [facility] 05-02-2018 Seasonal trivalent influenza vaccine, adjuvanted, preservative free Leyla Choi Work Phone: [facility] [address] Work Phone: 06-13-2017 influenza, high dose seasonal, preservative-free Leyla Choi Work Phone: [facility] [address] Work Phone: 06-13-2017 pneumococcal conjuga te vaccine, 13 valent Leyla Choi Work Phone: [facility] [address] Work Phone: 07-09-2015 influenza, seasonal, injectable, preservative free Leyla Choi Work Phone: [facility] [address] Work Phone: 06-02-2015 seasonal influenza, intradermal, preservative free Leyla Bustillos Choi Work Phone: [facility] [address] DO Work Phone: 04-24-2014 influenza, seasonal, injectable, preservative free Leyla E Choi Work Phone: [facility] [address] DO Work Phone: 05-08-2013 influenza, seasonal, injectable Leyla Choi Work Phone: [facility] [address] DO Work Phone: 04-24-2013 zoster vaccine, live Leyla Choi Work Phone: [place] [address] [place] Work Phone: Payers Date Payer Category Payer Private Health Insurance [facility] [id number] 2023 Self-pay 2017 Medicare [id number] 2010 Unknown [id number] 1959 Medicare [id number] 1958 Unknown [id number] 1940 Unknown [id number] [id number] 1940 Unknown [id number] [id number] [id number] 1940 Unknown [id number] 2.16.84 [id number] 1940 Unknown [id number] 2.16.84 [id number] 1940 Unknown [id number] 2.16. [id number] 1940 Unknown [id number] 2.16. [id number] Unknown Unknown [id number] 2.16.8 [id number] Social History Date Type Detail Facility Unknown if ever smoked [facility] Other Sex Assigned At Sex Assigned At Bir th [facility] Other Daily caffeine consumption Daily caffeine consumption -[facility] DO Work Phone: Comment on above: 5-6 cups of caffeine daily. Pop in afternoon; 1 pack daily; Start: 09-07-2023 [facility] Start: 1940 Sex Assigned At Female F [facility] Clinical Notes 03-11-2019 to 04-04-2023 Note Date & Type Note Facility 04-04-2023 Evaluation note Encounter Date Diagnosis Assessment Notes Apr, Chronic cough (ICD-10 - R05.3) Check tests today. Decrease smoking would be best. Son agrees, Jody is not amenable to that. Apr, Weight loss (ICD-10 - R63.4) Son is offering her frequent good nutrition. Appetite decreased. R/O metabolic causes. Apr, Fatigue, unspecified type (ICD-10 - R53.83) Discussed possible causes. No recent labs. Quite pale - r/o anemia or hypothyroidi sm. Apr, Alzheimer's disease, unspecified (ICD-10 - G30.9) Chronic - continue med. [facility] Other 04-24-2023 Evaluation note* Encounter Date Diagnosis Assessment Notes Treatment Notes Treatment Clinical Notes Oct, Alzheimer's disease, unspecified (ICD-10 - G30.9) Patient agrees to increase dose Oct, Excoriation of face, initial encounter (ICD-10 - S00.81XA) Patient encouraged to stop taking area hopefully will replace with antibiotic ointment Oct, Weight loss observed on examination (ICD-10 - R63.4) We will add medication to help her sleep to help her mood and help her appetite [facility] Other 03-24-2023 Evaluation note* Encounter Date Diagnosis Assessment Notes Treatment Notes Treatment Clinical Notes Aug, Chronic back pain (ICD-10 - M54.9) [facility] Other 01-23-2023 Evaluation note* Encounter Date Diagnosis Assessment Notes Treatment Notes Treatment Clinical Notes Jul, Chronic back pain (ICD-10 - M54.9) [facility] Other 01-23-2023 Evaluation note* Encounter Date Diagnosis Assessment Notes Treatment Notes Treatment Clinical Notes Jul, Alzheimer's disease, unspecified (ICD-10 - G30.9) Jul, Dementia in other di seases classified elsewhere, moderate, without behavioral disturbance, psychotic disturbance, mood disturbance, and anxiety (ICD-10 - F02.B0) Jul, Centrilobular emphys hannah (ICD-10 - J43.2) Instructed to continue Spiriva. States she has albuterol inhalers on hand. Jul, Chronic back pain (I CD-10 - M54.9) Jul, Pure hypercholestero lemia (ICD-10 - E78.00) Instructed to resume Lipitor. [facility] Other 09-06-2022 Evaluation note* Encounter Date Diagnosis Assessment Notes Treatment Notes Treatment Clinical Notes Mar, PAD (peripheral artery disease) (ICD-10 - I73.9) This patient likely has femoral-popliteal disease of bilateral lower extremities based on physical examination. She has no symptoms of claudication or ischemic rest pain and she has no tissue loss. We discussed recommendation for bilateral lower extremity ABIs for baseline studies. We will continue to follow her along in this aspect and see her back periodically. She knows to call us with any issues. Mar, AAA (abdominal aortic aneurysm) without rupture (ICD-10 - I71.4) This patient has known AAA and tells me this has not been monitored very closely and as far as she remembers it was around 5 cm at last exam when she tells me it was probably a year or 2 ago. On physical examination, her aorta is easily palpable, pulsatile, and enlarged. We will get her in for a CT of the abdomen pelvis to further assess her AAA. This is likely to be 6 cm or greater by physical examination. Dr. Floyd in room to further discuss this recommendation with the patient. Dr. Floyd discussed EVAR procedure, risk, benefits and all other questions were addressed. We will also get her into see her platform power technician for risk assessment and stratification prior to aneurysm repair. Patient family verbalized understanding of all discussion, agrees with this plan, denies any questions. [facility] Other 09-28-2019 History of Present illness Narrative* Patient is new to this provider. Subsequent chart review showed that she had seen Dr. Arndt within the last 3 years. * She is accompanied by her son Edward Isaac who is also her medical power of attorney lawyer. * Patient is a frail appearing 84-year-old female, with COPD, ongoing nicotine abuse, atheroscleroticnative vessel coronary artery disease, peripheral vascular disease, who was seen initially for lower extremity edema, was placed on hydrochlorothiazide with improvement, then there was concern about acute ischemia to the lower extremities, underwent arterial duplex, then saw vascular surgery, and now the concern is for a large abdominal aortic aneurysm. This aneurysm was about 5 cm about 2 years ago, and there have been discussions in the past about stenting and or surgery, the plan was to kamlesh ye to observe. Now there is concerned that there is further increase in size. * Patient has hypertension, ischemic cardiomyopathy with left ventricular ejection fraction as low as20%, history of inferior lateral myocardial infarction. She does not report any chest discomfort pressure tightness heaviness, but her activity level is very limited due to various reasons. Her son reports that she gets short of breath with activity such as walking a few steps. She sometimes gets short of breath laying flat. As noted before she continues to smoke. * Her appetite is poor. She has lost about 15 pounds in the last 2 to 3 years. 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 * Patient is interrupting the conversation on multiple occasions saying that she is really not keen on any type of aggressive or invasive procedures. * Laboratory data April 2021 hemoglobin 13.5 hematocrit 41 MCV 96.5 platelets 270 sodium 138 potassium 4.4 GFR greater than 60 albumin 3.6 total cholesterol 156 triglycerides 103 HDL 44 LDL 91 * Assessment: * 1. Patient is being seen for preoperative cardiac risk assessment prior to most likely EVAR for large abdominal aortic aneurysm. This aneurysm was at least 5 cm 2 years ago, most recent testing is pending * 2. Multiple cardiac risk factors to include hypertension, dyslipidemia, advanced age, peripheral vascular disease and ongoing nicotine addiction * 3. Weight loss of reportedly 50 pounds in the last 2 to 3 years with poor appetite. * 4. Limited activity, fragile clinical appearance, underweight * 5. Exertional shortness of breath due to a combination of cardiac and pulmonary issues functional class III * 6. History of lower extremity edema which has resolved with hydrochlorothiazide, currently not volume overloaded clinically * 7. Abnormal EKG with biatrial abnormality and left bundle branch block as well as inferior Q waves.These changes are old. * 8. Inferior wall myocardial infarction * 9. Echocardiogram October 2018-LVEF 35 to 40% closer to 35% moderate mitral regurgitation RV size andsystolic function normal LV end-systolic dimension 3.9 cm left atrial volume index reported to be 18.7 mL/m no pericardial effusion trace tricuspid regurgitation * 10. Right carotid bruit * 11. Peripheral vascular disease right greater than left * 12. 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 CTA abdomen April 21-5.2 x 5.0 fusiform abdominal aortic aneurysm measuring 11.2 cm in craniocaudal extent starting just below the level of the renal artery extending into the right common iliac artery extensive atherosclerotic plaque * 14. Cardiac MRI December 2018-dilated left ventricle LVEF 23% normal RV size RV ejection fraction 55% normal-sized atria moderate mitral regurgitation transmural myocardial infarction of the basal mid and distal inferior wall with partial extension to the inferior septum incidental right hilar mass 1.7 cm posterior inferior to the right superior pulmonary vein poorly differentiated, advised correlation with CT chest cardiac output then was 3.34 L/min and cardiac index was 1.8 L/min/m * 15. Coronary angiography December 2018-left main 0% stenosis LAD 30% proximal stenosis first diagonal 80% stenosis left circumflex 10% stenosis second obtuse marginal branch RCA 100% mid occlusion felt to be chronic LVEF 30% LVEDP elevated at 30 mmHg there was a recommendation for AICD at that time. * 16. Progressive short-term memory impairment * Recommendations: * 1. Overall this patient is an elderly frail underweight female with poor functional capacity, and ischemic cardiomyopathy with ejection fraction about 3 years ago of 30% at best. Extensive scarring of the inferior wall and inferior apex and moderate mitral regurgitation abnormal EKG with left bundle branch block which is unchanged from prior EKG as well as biatrial enlargement. Just observing herclinically her cardiac risk is high. Cardiac risk for open repair is probably prohibitive. * 2. Patient is not sure she wants to proceed with any type of invasive treatment. I discussed with her the pros and cons, and talked to her about the potential for rupture and sudden demise. She says that would be fine. * 3. She will not give up smoking. * 4. Carotid ultrasound to further evaluate right carotid bruit * 5. She is on good therapy for cardiomyopathy. Unable to uptitrate Entresto at this time, no recent lab data available also blood pressure borderline * 6. We will repeat an echocardiogram. * 7. Thought about perfusion imaging study, we we will hold off for now, son will let us know if patient is opting for EVAR or not, and if she is not, primary goal is to keep her comfortable, and encourage nutritional status. * 8. Per discussion of CODE STATUS today implies to me that she wants to be DNR CCA. * Total time taken today for chart review, review of prior records, end-of-life discussions, cardiac risk discussions, assessment of patient preference for additional care and aggressiveness of care, was 50 minutes. * Thank you Dr. Floyd and Shanti Garsia for allowing us to participate in patient's care, please do not hesitate to call if further questions arise, * I have asked patient's son to be in touch with our office regarding their decisions about EVAR, andwe will consider additional cardiac testing then. * Sincerely, * Carolina Quezada MD [facility]. [place] Work Phone: [phone] History of Present illness Narrative* Patient is new to this provider. Subsequent chart review showed that she had seen Dr. Arndt within the last 3 years. * She is accompanied by her son Edward Isaac who is also her medical power of attorney lawyer. * Patient is a frail appearing 84-year-old female, with COPD, ongoing nicotine abuse, atheroscleroticnative vessel coronary artery disease, peripheral vascular disease, who was seen initially for lower extremity edema, was placed on hydrochlorothiazide with improvement, then there was concern about acute ischemia to the lower extremities, underwent arterial duplex, then saw vascular surgery, and now the concern is for a large abdominal aortic aneurysm. This aneurysm was about 5 cm about 2 years ago, and there have been discussions in the past about stenting and or surgery, the plan was to kamlesh nue to observe. Now there is concerned that there is further increase in size. * Patient has hypertension, ischemic cardiomyopathy with left ventricular ejection fraction as low as20%, history of inferior lateral myocardial infarction. She does not report any chest discomfort pressure tightness heaviness, but her activity level is very limited due to various reasons. Her son reports that she gets short of breath with activity such as walking a few steps. She sometimes gets short of breath laying flat. As noted before she continues to smoke. * Her appetite is poor. She has lost about 15 pounds in the last 2 to 3 years. 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 * Patient is interrupting the conversation on multiple occasions saying that she is really not keen on any type of aggressive or invasive procedures. * Laboratory data April 2021 hemoglobin 13.5 hematocrit 41 MCV 96.5 platelets 270 sodium 138 potassium 4.4 GFR greater than 60 albumin 3.6 total cholesterol 156 triglycerides 103 HDL 44 LDL 91 * Assessment: * 1. Patient is being seen for preoperative cardiac risk assessment prior to most likely EVAR for large abdominal aortic aneurysm. This aneurysm was at least 5 cm 2 years ago, most recent testing is pending * 2. Multiple cardiac risk factors to include hypertension, dyslipidemia, advanced age, peripheral vascular disease and ongoing nicotine addiction * 3. Weight loss of reportedly 50 pounds in the last 2 to 3 years with poor appetite. * 4. Limited activity, fragile clinical appearance, underweight * 5. Exertional shortness of breath due to a combination of cardiac and pulmonary issues functional class III * 6. History of lower extremity edema which has resolved with hydrochlorothiazide, currently not volume overloaded clinically * 7. Abnormal EKG with biatrial abnormality and left bundle branch block as well as inferior Q waves.These changes are old. * 8. Inferior wall myocardial infarction * 9. Echocardiogram October 2018-LVEF 35 to 40% closer to 35% moderate mitral regurgitation RV size andsystolic function normal LV end-systolic dimension 3.9 cm left atrial volume index reported to be 18.7 mL/m no pericardial effusion trace tricuspid regurgitation * 10. Right carotid bruit * 11. Peripheral vascular disease right greater than left * 12. 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 CTA abdomen April 21-5.2 x 5.0 fusiform abdominal aortic aneurysm measuring 11.2 cm in craniocaudal extent starting just below the level of the renal artery extending into the right common iliac artery extensive atherosclerotic plaque * 14. Cardiac MRI December 2018-dilated left ventricle LVEF 23% normal RV size RV ejection fraction 55% normal-sized atria moderate mitral regurgitation transmural myocardial infarction of the basal mid and distal inferior wall with partial extension to the inferior septum incidental right hilar mass 1.7 cm posterior inferior to the right superior pulmonary vein poorly differentiated, advised correlation with CT chest cardiac output then was 3.34 L/min and cardiac index was 1.8 L/min/m * 15. Coronary angiography December 2018-left main 0% stenosis LAD 30% proximal stenosis first diagonal 80% stenosis left circumflex 10% stenosis second obtuse marginal branch RCA 100% mid occlusion felt to be chronic LVEF 30% LVEDP elevated at 30 mmHg there was a recommendation for AICD at that time. * 16. Progressive short-term memory impairment * Recommendations: * 1. Overall this patient is an elderly frail underweight female with poor functional capacity, and ischemic cardiomyopathy with ejection fraction about 3 years ago of 30% at best. Extensive scarring of the inferior wall and inferior apex and moderate mitral regurgitation abnormal EKG with left bundle branch block which is unchanged from prior EKG as well as biatrial enlargement. Just observing herclinically her cardiac risk is high. Cardiac risk for open repair is probably prohibitive. * 2. Patient is not sure she wants to proceed with any type of invasive treatment. I discussed with her the pros and cons, and talked to her about the potential for rupture and sudden demise. She says that would be fine. * 3. She will not give up smoking. * 4. Carotid ultrasound to further evaluate right carotid bruit * 5. She is on good therapy for cardiomyopathy. Unable to uptitrate Entresto at this time, no recent lab data available also blood pressure borderline * 6. We will repeat an echocardiogram. * 7. Thought about perfusion imaging study, we we will hold off for now, son will let us know if patient is opting for EVAR or not, and if she is not, primary goal is to keep her comfortable, and encourage nutritional status. * 8. Per discussion of CODE STATUS today implies to me that she wants to be DNR CCA. * Total time taken today for chart review, review of prior records, end-of-life discussions, cardiac risk discussions, assessment of patient preference for additional care and aggressiveness of care, was 50 minutes. * Thank you Dr. Floyd and Shanti Garsia for allowing us to participate in patient's care, please do not hesitate to call if further questions arise, * I have asked patient's son to be in touch with our office regarding their decisions about EVAR, andwe will consider additional cardiac testing then. * Sincerely, * Carolina Quezada MD [facility]. [facility] [address] Work Phone: [phone] History of Present illness Narrative* Patient is new to this provider. Subsequent chart review showed that she had seen Dr. Arndt within the last 3 years. * She is accompanied by her son Edward Isaac who is also her medical power of attorney lawyer. * Patient is a frail appearing 84-year-old female, with COPD, ongoing nicotine abuse, atheroscleroticnative vessel coronary artery disease, peripheral vascular disease, who was seen initially for lower extremity edema, was placed on hydrochlorothiazide with improvement, then there was concern about acute ischemia to the lower extremities, underwent arterial duplex, then saw vascular surgery, and now the concern is for a large abdominal aortic aneurysm. This aneurysm was about 5 cm about 2 years ago, and there have been discussions in the past about stenting and or surgery, the plan was to kamlesh nue to observe. Now there is concerned that there is further increase in size. * Patient has hypertension, ischemic cardiomyopathy with left ventricular ejection fraction as low as20%, history of inferior lateral myocardial infarction. She does not report any chest discomfort pressure tightness heaviness, but her activity level is very limited due to various reasons. Her son reports that she gets short of breath with activity such as walking a few steps. She sometimes gets short of breath laying flat. As noted before she continues to smoke. * Her appetite is poor. She has lost about 15 pounds in the last 2 to 3 years. 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 * Patient is interrupting the conversation on multiple occasions saying that she is really not keen on any type of aggressive or invasive procedures. * Laboratory data April 2021 hemoglobin 13.5 hematocrit 41 MCV 96.5 platelets 270 sodium 138 potassium 4.4 GFR greater than 60 albumin 3.6 total cholesterol 156 triglycerides 103 HDL 44 LDL 91 * Assessment: * 1. Patient is being seen for preoperative cardiac risk assessment prior to most likely EVAR for large abdominal aortic aneurysm. This aneurysm was at least 5 cm 2 years ago, most recent testing is pending * 2. Multiple cardiac risk factors to include hypertension, dyslipidemia, advanced age, peripheral vascular disease and ongoing nicotine addiction * 3. Weight loss of reportedly 50 pounds in the last 2 to 3 years with poor appetite. * 4. Limited activity, fragile clinical appearance, underweight * 5. Exertional shortness of breath due to a combination of cardiac and pulmonary issues functional class III * 6. History of lower extremity edema which has resolved with hydrochlorothiazide, currently not volume overloaded clinically * 7. Abnormal EKG with biatrial abnormality and left bundle branch block as well as inferior Q waves.These changes are old. * 8. Inferior wall myocardial infarction * 9. Echocardiogram October 2018-LVEF 35 to 40% closer to 35% moderate mitral regurgitation RV size andsystolic function normal LV end-systolic dimension 3.9 cm left atrial volume index reported to be 18.7 mL/m no pericardial effusion trace tricuspid regurgitation * 10. Right carotid bruit * 11. Peripheral vascular disease right greater than left * 12. 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 CTA abdomen April 21-5.2 x 5.0 fusiform abdominal aortic aneurysm measuring 11.2 cm in craniocaudal extent starting just below the level of the renal artery extending into the right common iliac artery extensive atherosclerotic plaque * 14. Cardiac MRI December 2018-dilated left ventricle LVEF 23% normal RV size RV ejection fraction 55% normal-sized atria moderate mitral regurgitation transmural myocardial infarction of the basal mid and distal inferior wall with partial extension to the inferior septum incidental right hilar mass 1.7 cm posterior inferior to the right superior pulmonary vein poorly differentiated, advised correlation with CT chest cardiac output then was 3.34 L/min and cardiac index was 1.8 L/min/m * 15. Coronary angiography December 2018-left main 0% stenosis LAD 30% proximal stenosis first diagonal 80% stenosis left circumflex 10% stenosis second obtuse marginal branch RCA 100% mid occlusion felt to be chronic LVEF 30% LVEDP elevated at 30 mmHg there was a recommendation for AICD at that time. * 16. Progressive short-term memory impairment * Recommendations: * 1. Overall this patient is an elderly frail underweight female with poor functional capacity, and ischemic cardiomyopathy with ejection fraction about 3 years ago of 30% at best. Extensive scarring of the inferior wall and inferior apex and moderate mitral regurgitation abnormal EKG with left bundle branch block which is unchanged from prior EKG as well as biatrial enlargement. Just observing herclinically her cardiac risk is high. Cardiac risk for open repair is probably prohibitive. * 2. Patient is not sure she wants to proceed with any type of invasive treatment. I discussed with her the pros and cons, and talked to her about the potential for rupture and sudden demise. She says that would be fine. * 3. She will not give up smoking. * 4. Carotid ultrasound to further evaluate right carotid bruit * 5. She is on good therapy for cardiomyopathy. Unable to uptitrate Entresto at this time, no recent lab data available also blood pressure borderline * 6. We will repeat an echocardiogram. * 7. Thought about perfusion imaging study, we we will hold off for now, son will let us know if patient is opting for EVAR or not, and if she is not, primary goal is to keep her comfortable, and encourage nutritional status. * 8. Per discussion of CODE STATUS today implies to me that she wants to be DNR CCA. * Total time taken today for chart review, review of prior records, end-of-life discussions, cardiac risk discussions, assessment of patient preference for additional care and aggressiveness of care, was 50 minutes. * Thank you Dr. Floyd and Shanti Garsia for allowing us to participate in patient's care, please do not hesitate to call if further questions arise, * I have asked patient's son to be in touch with our office regarding their decisions about EVAR, andwe will consider additional cardiac testing then. * Sincerely, * Carolina Quezada MD [facility]. [facility] [address] Work Phone: Evaluation noteNo InformationNoCollective [employer] Other Evaluation note* Diagnosis Onset Date Resolution Status Peripheral vascular disease acute Right foot pain acute [facility] Work Phone: History general Narrative - Reported* Type Description Date Medical History AAA Medical History HTN Medical History HYPERCHOLESTERMIA Medical History COPD Surgical History BACK SURG X3 Surgical History CHOLY Surgical History TRIGGER THUMB RELEASE Surgical History ROTATOR CUFF REPAIR 06/2016 Surgical History APPENDECTOMY Surgical History BREAST BIOPSY Surgical History D & C Hospitalization History SEE ABOVE [facility] Other [facility] Narrative - Reported* Type Description Date Medical History Acute UTI Medical History Dyspnea on exertion Medical History Situational depression Medical History Insomnia Medical History Situational anxiety Medical History Right lower lobe pneumonia Medical History Dysuria Medical History Aortic aneurysm Medical History Seborrheic keratosis, inflamed Medical History Chronic back pain Medical History Underweight Medical History Chronic obstructive pulmonary disease, unspecified COPD type Medical History Memory impairment Medical History Essential hypertension Medical History Leg edema, right Medical History Abdominal aortic ane urysm (AAA) 3.0 cm to 5.0 cm in diameter in female Medical History HFrEF (heart failure with reduced ejection fraction) Medical History Tobacco user Medical History Right calf pain Medical History Hypotension Medical History Weakness Medical History Colicky abdominal pain Medical History Gastroesophageal reflux disease Medical History PVD (peripheral vascular disease ) Medical History Functional diarrhea Medical History Hyperlipidemia Medical History Multiple pulmonary nodules Medical History Centrilobular emphysema 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 LUGO Surgical History CHOLECYSTECTOMY Surgical History RIGHT TRIGGER THUMB RELEASE Surgical History ROTATOR CUFF REPAIR 06/2016 Surgical History APPENDECTOMY Surgical History LEFT BREAST BIOPSY Surgical History D & C Surgical History LEFT KNEE ARTHROSCOPY Surgical History CATARACT EXTRACTION, BILATERA\L Hospitalization History SEE ABOVE [facility] Other Hospital Discharge instructionsAmbulatory Orders* Referral to Podiatry Time Frame: 02/27/24, Location: None [facility] Work Phone: Reason for visit NarrativeURGENT REFERRAL FOR COMPLETE OCCLUSION [facility] Other Summary Purpose Family History Unknown Family Member Name Dates Details Family history of CABG: Sist er, Brother(V17.49, Z82.49) Status:Active Family history of chronic ob structive pulmonary disease: Sister, Brother(V17.6, Z82.5) Status:Active Hypertension, benign: Mother , Sister Status:Active Unknown Family Member Name Dates Details Hypertension, benign: Mother , Sister Status:Active Family history of chronic ob structive pulmonary disease: Sister, Brother(V17.6, Z82.5) Status:Active Family history of CABG: Sist er, Brother(V17.49, Z82.49) Status:Active Unknown Family Member Name Dates Details Family history of CABG: Sist er, Brother(V17.49, Z82.49) Status:Active Family history of chronic ob structive pulmonary disease: Sister, Brother(V17.6, Z82.5) Status:Active Hypertension, benign: Mother , Sister Status:Active Unknown Family Member Name Dates Details Family history of CABG: Sist er, Brother(V17.49, Z82.49) Status:Active Family history of chronic ob structive pulmonary disease: Sister, Brother(V17.6, Z82.5) Status:Active Hypertension, benign: Mother , Sister Status:Active Relationship Condition Age at Onset Recorded Date/T arleth brother Heart disease Unknown father Unknown mother Hypertension Unknown Malignant neoplasm Unknown Unknown sister Heart disease Unknown Advance Directives Advance Directive Response Recorded Date/ Time Advance Directives No June 07, 2017 5:47pm Chief Complaint JODY TATUM is being seen for pre-operative clearance and Dr. Floyd- AAA repair.JODY TATUM is being seen for pre-operative clearance and Dr. Floyd- AAA repair.JODY TATUM is being seen for pre-operative clearance and Dr. Floyd- AAA repair. Chief Complaint and Reason for Visit Chief Complaint lump on foot Reason for Visit Peripheral vascular disease Right foot pain Additional Source Comments INFORMATION SOURCE (unrecogn ized section and content) DATE CREATED AUTHOR 12/26/2017 [facility] DATE CREATED AUTHOR AUTHOR'S ORGANIZ ATION 10/30/2018 [facility] DATE CREATED AUTHOR AUTHOR'S ORGANIZ ATION 02/08/2019 [facility] DATE CREATED AUTHOR AUTHOR'S ORGANIZ ATION 03/05/2022 [facility] DATE CREATED AUTHOR AUTHOR'S ORGANIZ ATION 05/08/2022 [employer] DATE CREATED AUTHOR AUTHOR'S ORGANIZ ATION 05/27/2022 [facility] DATE CREATED AUTHOR AUTHOR'S ORGANIZ ATION 09/19/2023 [facility] REASON FOR VISIT (unrecogniz ed section and content) messagelabCheck Up3 month Fo llow uprefillsleeping problems Care Teams (unrecognized sec tion and content) Team Status: Active Member Role Status Dates Leyla Choi MD Primary Care Provider Active Team Status: Inactive Member Role Status Dates Leyla Choi MD Primary Care Provide r, Attending Provider Active Start: February 27, 2024 End: February 27, 2024 Goals (unrecognized section and content) Goals may be documented in a n alternate section FOR RECORDS PERTAINING TO PATIENTS WHO ARE OR HAVE BEEN ENROLLED IN A CHEMICAL DEPENDENCY/SUBSTANCEABUSE PROGRAM, SOME INFORMATION MAY BE OMITTED. This clinical summary was aggregated from multiple sources. Caution should be exercised in using it in the provision of clinical care. This summary normalizes information from multiple sources, and as a consequence, information in this document may materially change the coding, format and clinical context of patient data. In addition, data may be omitted in some cases. CLINICAL DECISIONS SHOULD BE BASED ON THE PRIMARY CLINICAL RECORDS. [employer] provides no warranty or guarantee of the accuracy or completeness of information in this document.
[2024-09-12 11:14] LABS: Basophils Absolute Auto 0.1 10^3/uL (0.0-0.1); Basophils Percent Auto 1.3 % (0.2-2.0); Eosinophils Absolute Auto 0.1 10^3/uL (0.0-0.7); Eosinophils Percent Auto 1.4 % (0.9-7.0); Hematocrit 45.4 % (36.0-48.0); Hemoglobin 14.9 g/dL (12.0-16.0); Immature Granulocytes Abs Auto 0.02 10^3/uL (0.00-0.03); Immature Granulocytes Pct Auto 0.3 % (0.0-0.5); Lymphocytes Absolute Auto 1.9 10^3/uL (1.2-3.8); Mean Corpuscular HGB Conc 32.8 g/dL (29.9-35.2); Mean Corpuscular Hemoglobin 32.4 pg (26.7-34.0); Mean Corpuscular Volume 98.7 fL (81.0-99.0); Mean Platelet Volume 9.3 fL (9.5-13.5); Monocytes Absolute Auto 0.5 10^3/uL (0.3-0.8); Monocytes Percent Auto 6.8 % (1.7-12.0); Neutrophils Percent Auto 65.2 % (43.0-75.0); Platelet Count 271 10^3/uL (150-450); Red Cell Distribution Width 13.8 % (11.0-15.0); White Blood Count 7.7 10^3/uL (4.0-11.0)
[2024-09-12 12:13] LABS: Alanine Aminotransferase 29 U/L (14-59); Albumin Globulin Ratio 0.8; Albumin Level 3.6 g/dL (3.4-5.0); Alkaline Phosphatase 147 U/L (46-116); Anion Gap 14.6; Aspartate Amino Transferase 21 U/L (15-37); BUN Creatinine Ratio 14.3; Bilirubin Total 0.4 mg/dL (0.2-1.0); Calcium 9.4 mg/dL (8.5-10.1); Carbon Dioxide 26.4 mmol/L (21.0-32.0); Chloride 104 mmol/L (98-107); Chol HDL Ratio 2.3; Cholesterol 131 mg/dL (<=200); Estimated GFR (African America >60 (>=60 mL/min/1.73m^2); Estimated GFR (Non-African Ame 50 (>=60 mL/min/1.73m^2); Globulin 4.4 g/dL; Glucose 119 mg/dL (74-106); HDL Cholesterol 56 mg/dL (40-60); LDL Cholesterol Calculated 56.8 mg/dL; Sodium 141 mmol/L (136-145); TSH W/ REFLEX FT4 1.279 uIU/mL (0.358-3.740); Triglycerides 91 mg/dL (<=150); VLDL CHOLESTEROL 18.2 mg/dL
== END 2024-09-12 10:49 | disposition home or self-care (01) ==
LOC: LAB 10:49
PROVIDERS: PCP Family Medicine; Visit Provider Family Medicine
DX: E78.00 Pure hypercholesterolemia, unspecified (principal); I73.9 Peripheral vascular disease, unspecified
CPT/HCPCS: 36415; 80053; 80061; 84443; 85025